=== PATIENT | female | born 1990 | race Caucasian/White ===

== ENCOUNTER → 2016-11-05 | Outpatient (REF) | payer OTHER ==
[~2016-11-05] MED LIST: ACET50TA PO; CYCL10TA PO; FERR325T3 PO; IBUP-1114 PO; IBUP80TA PO; LABE10TAB PO; NORE0.353 PO; PERC5TAB6 PO; PRENTAB9 PO; TUMS500C PO; VITAPRTA PO; ZANTTAB PO; ZYRT10CA PO; [UNRECOGNIZED DRUG - OTHER] PO
[2016-11-05 14:11] LABS: FOLATE 16.5 NG/ML; VITAMIN B12 LEVEL 325 PG/ML
[2016-11-05 14:20] LABS: FREE T4 0.99 NG/DL (0.76-1.46); TOTAL PROTEIN 7.7 GM/DL (6.4-8.2)
[2016-11-07 10:45] LABS: ALBUMIN 4.25 GM/DL (3.29-5.55); ALBUMIN % 55.2 % (55.8-66.1); GAMMA GLOBULIN % 20.9 % (11.1-18.8)
[2016-11-08 14:26] LABS: VITAMIN E LEVEL 10.6 mg/L (5.3-16.8)
== END | disposition home or self-care (01) ==
LOC: M LABNEURO 12:48
PROVIDERS: ATTEND Psychiatry & Neurology Neurology
DX: G62.9 Polyneuropathy, unspecified (principal); G43.909 Migraine, unspecified, not intractable, without status migrainosus

== ENCOUNTER → 2017-03-05 | Outpatient (REF) | payer OTHER ==
[2017-03-05 13:44] LABS: CONTROL LINE HCG INT CTR LINE PRESENT
[2017-03-05 13:48] LABS: BASO % 0.3 % (0.0-1.0); EOS # 0.2 K/mm3 (0.0-0.50); EOS % 2.1 % (0.0-3.0); LARGE UNSTAINED CELL # 0.1 K/mm3 (0.0-0.4); LARGE UNSTAINED CELL % 1.6 % (0.0-4.0); LYMPH # 1.7 K/mm3 (1.5-6.5); LYMPH % 22.3 % (24.0-44.0); MEAN CORPUSCULAR HEMOGLOBIN 27.1 pg (27.0-33.0); MEAN CORPUSCULAR HGB CONC 32.1 g/dl (32.0-36.5); MEAN CORPUSCULAR VOLUME 84.5 fl (80.0-96.0); MONO # 0.4 K/mm3 (0.0-0.8); MONO % 5.9 % (0.0-5.0); NEUTROPHILS # 4.8 K/mm3 (1.8-7.7); NEUTROPHILS % 67.8 % (36.0-66.0); PLATELET COUNT, AUTOMATED 223 k/mm3 (150-450); RED CELL DISTRIBUTION WIDTH 12.9 % (11.5-14.5); WHITE BLOOD COUNT 7.1 K/mm3 (4.0-10.0)
[2017-03-05 13:59] LABS: ALBUMIN 3.6 GM/DL (3.2-5.2); ALBUMIN/GLOBULIN RATIO 1.06 (1.00-1.93); ALKALINE PHOSPHATASE 80 U/L (45-117); ALT/SGPT 30 U/L (12-78); AMYLASE 25 U/L (25-115); ANION GAP 7 MEQ/L (8-16); AST/SGOT 12 U/L (15-37); BILIRUBIN,TOTAL 0.4 MG/DL (0.2-1.0); BLOOD UREA NITROGEN 11 MG/DL (7-18); CALCIUM LEVEL 9.2 MG/DL (8.5-10.1); CARBON DIOXIDE LEVEL 27 MEQ/L (21-32); CHLORIDE LEVEL 106 MEQ/L (98-107); CREATININE FOR GFR 0.78 MG/DL (0.55-1.02); GLOMERULAR FILTRATION RATE > 60.0 (>60); GLUCOSE, FASTING 87 MG/DL (70-105); POTASSIUM SERUM 4.2 MEQ/L (3.5-5.1); SODIUM LEVEL 140 MEQ/L (136-145)
== END ==
LOC: M SFHCPLAZ 10:18
PROVIDERS: ATTEND Nurse Practitioner Family
DX: R10.13 Epigastric pain (principal)

== ENCOUNTER → 2017-03-26 | Outpatient (REF) | payer OTHER | LOC: M LAB REF 13:07 | PROVIDERS: ATTEND Specialist | DX: Z12.4 Encounter for screening for malignant neoplasm of cervix (principal) ==

== ENCOUNTER → 2017-05-02 | Outpatient (CLI) | payer OTHER ==
[~2017-05-02] MED LIST changes: +PERC5TAB12 PO; -PERC5TAB6 PO
[2017-05-06 00:06] LABS: Lyme Disease IgG Ab 18 kDa Ban Absent (.); Lyme Disease IgG Ab 23 kDa Ban Absent (.); Lyme Disease IgG Ab 28 kDa Ban Absent (.); Lyme Disease IgG Ab 30 kDa Ban Absent (.); Lyme Disease IgG Ab 39 kDa Ban Absent (.); Lyme Disease IgG Ab 41 kDa Ban Present (.); Lyme Disease IgG Ab 45 kDa Ban Absent (.); Lyme Disease IgG Ab 58 kDa Ban Absent (.); Lyme Disease IgG Ab 66 kDa Ban Absent (.); Lyme Disease IgG Ab 93 kDa Ban Absent (.); Lyme Disease IgG West Blot Int Negative (.); Lyme Disease IgG/IgM Antibodie 0.94 ISR (0.00-0.90); Lyme Disease IgM Ab 23 kDa Ban Present (.); Lyme Disease IgM Ab 39 kDa Ban Absent (.); Lyme Disease IgM Ab 41 kDa Ban Present (.); Lyme Disease IgM Ab Quantitati 1.55 index (0.00-0.79); Lyme Disease IgM West Blot Int Positive (.)
== END ==
LOC: M LAB 10:07
PROVIDERS: ATTEND Nurse Practitioner Family
DX: M25.50 Pain in unspecified joint (principal)

== ENCOUNTER 2017-11-07 15:12 | Emergency (ER) | payer OTHER | END 2017-11-07 16:52 | disposition home or self-care (01) | LOC: M ED 15:12 | DX: M54.5 Low back pain (principal); G89.29 Other chronic pain; J45.909 Unspecified asthma, uncomplicated; F17.210 Nicotine dependence, cigarettes, uncomplicated; Z79.899 Other long term (current) drug therapy; Z91.048 Other nonmedicinal substance allergy status; Z88.8 Allergy status to other drugs, medicaments and biological substances | CPT/HCPCS: 99283 ==

== ENCOUNTER 2017-11-11 15:32 | Emergency (ER) | payer OTHER ==
[2017-11-11] MEDS: diphenhydrAMINE INJ 50MG/ML VIAL (J1200) IV (18:09)
[2017-11-11] MEDS: METOCLOPRAMIDE INJ 10MG/2ML VIAL (J2765) IV (18:15)
[2017-11-11] MEDS: KETOROLAC 30 MG/ML VIAL (J1885) IV (18:15)
[2017-11-11] MEDS: NS 1,000 ML IV (18:15)
[2017-11-11 18:26] LABS: BASO % 0.4 % (0.0-1.0); EOS # 0.2 10^3/uL (0.0-0.50); EOS % 2.5 % (0.0-3.0); HEMATOCRIT 48.4 % (36.0-47.0); HEMOGLOBIN 15.7 g/dl (12.0-16.0); IMMATURE GRANULOCYTE % 0.2 % (0-0); LYMPH # 2.9 10^3/uL (1.5-6.5); LYMPH % 31.4 % (24.0-44.0); MEAN CORPUSCULAR HEMOGLOBIN 27.5 pg (27.0-33.0); MEAN CORPUSCULAR HGB CONC 32.4 g/dl (32.0-36.5); MEAN CORPUSCULAR VOLUME 84.9 fl (80.0-96.0); MONO # 0.8 10^3/uL (0.0-0.8); MONO % 8.3 % (0.0-5.0); NEUTROPHILS # 5.2 10^3/uL (1.8-7.7); NEUTROPHILS % 57.2 % (36.0-66.0); PLATELET COUNT, AUTOMATED 322 10^3/uL (150-450); RED CELL DISTRIBUTION WIDTH 13.2 % (11.5-14.5); WHITE BLOOD COUNT 9.2 10^3/uL (4.0-10.0)
[2017-11-11 19:12] LABS: ANION GAP 5 MEQ/L (8-16); BLOOD UREA NITROGEN 14 MG/DL (7-18); CALCIUM LEVEL 9.5 MG/DL (8.5-10.1); CARBON DIOXIDE LEVEL 30 MEQ/L (21-32); CHLORIDE LEVEL 105 MEQ/L (98-107); CPK CREATINE PHOSPHOKINASE 50 U/L (26-192); CREATININE FOR GFR 1.01 MG/DL (0.55-1.02); GLOMERULAR FILTRATION RATE > 60.0 (>60); GLUCOSE, FASTING 73 MG/DL (70-105); POTASSIUM SERUM 3.7 MEQ/L (3.5-5.1); SODIUM LEVEL 140 MEQ/L (136-145)
== END 2017-11-11 19:34 | disposition home or self-care (01) ==
LOC: M ED 15:32
DX: G43.009 Migraine without aura, not intractable, without status migrainosus (principal); I10 Essential (primary) hypertension; F41.9 Anxiety disorder, unspecified; F33.9 Major depressive disorder, recurrent, unspecified; F90.9 Attention-deficit hyperactivity disorder, unspecified type; F17.210 Nicotine dependence, cigarettes, uncomplicated; Z79.899 Other long term (current) drug therapy; Z91.048 Other nonmedicinal substance allergy status; Z88.8 Allergy status to other drugs, medicaments and biological substances
CPT/HCPCS: J1200

== ENCOUNTER → 2017-12-12 | Outpatient (REF) | payer OTHER ==
[2017-12-12 12:47] LABS: FREE T4 1.17 NG/DL (0.76-1.46)
== END ==
LOC: M SFHCPLAZ 08:43
DX: L65.9 Nonscarring hair loss, unspecified (principal)

== ENCOUNTER → 2018-02-25 | Outpatient (REF) | payer OTHER ==
[2018-02-25 17:59] LABS: BASO % 0.3 % (0.0-1.0); EOS # 0.1 10^3/uL (0.0-0.50); EOS % 1.1 % (0.0-3.0); HEMATOCRIT 43.5 % (36.0-47.0); HEMOGLOBIN 14.3 g/dl (12.0-15.5); IMMATURE GRANULOCYTE % 0.1 % (0-3.0); LYMPH % 26.2 % (24.0-44.0); MEAN CORPUSCULAR HEMOGLOBIN 28.4 pg (27.0-33.0); MEAN CORPUSCULAR HGB CONC 32.9 g/dl (32.0-36.5); MEAN CORPUSCULAR VOLUME 86.5 fl (80.0-96.0); MONO # 0.5 10^3/uL (0.0-0.8); MONO % 7.1 % (0.0-5.0); NEUTROPHILS % 65.2 % (36.0-66.0); PLATELET COUNT, AUTOMATED 289 10^3/uL (150-450); RED BLOOD COUNT 5.03 10^6/uL (4.00-5.40); RED CELL DISTRIBUTION WIDTH 12.4 % (11.5-14.5); WHITE BLOOD COUNT 7.6 10^3/uL (4.0-10.0)
[2018-02-25 18:17] LABS: ALBUMIN 4.2 GM/DL (3.2-5.2); ALBUMIN/GLOBULIN RATIO 1.17 (1.00-1.93); ALKALINE PHOSPHATASE 78 U/L (45-117); ALT/SGPT 34 U/L (12-78); AMYLASE 24 U/L (25-115); ANION GAP 5 MEQ/L (8-16); AST/SGOT 15 U/L (7-37); BILIRUBIN,TOTAL 0.4 MG/DL (0.2-1.0); BLOOD UREA NITROGEN 11 MG/DL (7-18); CALCIUM LEVEL 9.1 MG/DL (8.5-10.1); CARBON DIOXIDE LEVEL 27 MEQ/L (21-32); CHLORIDE LEVEL 107 MEQ/L (98-107); GLOMERULAR FILTRATION RATE > 60.0 (>60); GLUCOSE, FASTING 64 MG/DL (70-100); LIPASE 74 U/L (73-393); POTASSIUM SERUM 4.2 MEQ/L (3.5-5.1); SODIUM LEVEL 139 MEQ/L (136-145); TOTAL PROTEIN 7.8 GM/DL (6.4-8.2)
[2018-02-25 19:53] LABS: APPEARANCE, URINE CLEAR (CLEAR); BACTERIA, URINE AUTO 1+ (NEGATIVE); BILIRUBIN, URINE AUTO NEGATIVE (NEGATIVE); BLOOD, URINE BLOOD NEGATIVE (NEGATIVE); COLOR, URINE YELLOW (YELLOW); GLUCOSE, URINE (UA) AUTO NEGATIVE (NEGATIVE); KETONE, URINE AUTO NEGATIVE (NEGATIVE); LEUKOCYTE ESTERASE, URINE AUTO 2+ (NEGATIVE); MUCUS, URINE SMALL (NEGATIVE); NITRITE, URINE AUTO NEGATIVE (NEGATIVE); PROTEIN, URINE AUTO NEGATIVE (NEGATIVE); RBC, URINE AUTO 3 /HPF (0-3); SPECIFIC GRAVITY URINE AUTO 1.021 (1.002-1.035); SQUAMOUS EPITHELIAL CELL UR AU 6 /HPF (0-6); UROBILINOGEN, URINE AUTO 0.2 mg/dL (0.0-2.0); WBC, URINE AUTO 22 /HPF (0-3)
[2018-02-25 20:26] LABS: MALB URINE SIEMENS 18.7 MG/L; MAU/CREAT RATIO 7.7 MCG/MG (0.0-30.0)
== END ==
LOC: M SFHCPLAZ 15:37
DX: R10.13 Epigastric pain (principal); I10 Essential (primary) hypertension; R39.11 Hesitancy of micturition

== ENCOUNTER → 2018-03-04 | Outpatient (CLI) | payer OTHER | LOC: M RAD 07:05 | DX: R10.13 Epigastric pain (principal) | CPT/HCPCS: 76705 ==

== ENCOUNTER → 2019-01-27 | Outpatient (REF) | payer OTHER ==
[~2019-01-27] MED LIST changes: -ACET50TA PO; +ADDE10CA3 PO; +IBUP-1022 PO; +MAPA500T2 PO; +SUMA6INJ16; +TRIA37.5; +VERA180C3 PO
[2019-01-27 12:49] LABS: BLOOD UREA NITROGEN 9 MG/DL (7-18); CALCIUM LEVEL 9.4 MG/DL (8.5-10.1); CARBON DIOXIDE LEVEL 28 MEQ/L (21-32); CHLORIDE LEVEL 106 MEQ/L (98-107); FERRITIN 22 NG/ML (8-252); GLOMERULAR FILTRATION RATE > 60.0 (>60); GLUCOSE, FASTING 101 MG/DL (70-100); IRON (FE) 65 UG/DL (50-170); POTASSIUM SERUM 4.2 MEQ/L (3.5-5.1); SODIUM LEVEL 140 MEQ/L (136-145)
== END ==
LOC: M SFHCPLAZ 09:17
PROVIDERS: ATTEND Nurse Practitioner Family
DX: L65.9 Nonscarring hair loss, unspecified (principal); I10 Essential (primary) hypertension

== ENCOUNTER 2019-02-16 13:46 | Emergency (ER) | payer OTHER ==
[~2019-02-16] VITALS: Ht 162.6 cm; Wt 65.9 kg
[2019-02-16] MEDS ORDERED: AZIT500T2 (13:53)
[2019-02-16] MEDS ORDERED: AMPICILLIN SOD/SULBACTAM SOD 3 GM in D5W MINI-BAG PLUS 100 ML IV ONE (14:45)
[2019-02-16] MEDS ORDERED: KETOROLAC 30 MG/ML VIAL (J1885) IV ONE (14:45)
[2019-02-16] MEDS ORDERED: NS 1,000 ML IV ONE (14:45)
[2019-02-16] MEDS ORDERED: IBUP-1022 PO (14:59)
[2019-02-16] MEDS ORDERED: AUGM875T28 PO (14:59)
[2019-02-16 15:04] LABS: BASO % 0.4 % (0.0-1.0); EOS # 0.3 10^3/uL (0.0-0.50); EOS % 2.3 % (0.0-3.0); HEMATOCRIT 40.8 % (36.0-47.0); HEMOGLOBIN 13.5 g/dl (12.0-15.5); LYMPH # 1.4 10^3/uL (1.5-6.5); LYMPH % 12.3 % (24.0-44.0); MEAN CORPUSCULAR HEMOGLOBIN 29.3 pg (27.0-33.0); MEAN CORPUSCULAR HGB CONC 33.1 g/dl (32.0-36.5); MEAN CORPUSCULAR VOLUME 88.5 fl (80.0-96.0); MONO # 0.8 10^3/uL (0.0-0.8); MONO % 6.9 % (0.0-5.0); NEUTROPHILS # 8.7 10^3/uL (1.8-7.7); NEUTROPHILS % 77.7 % (36.0-66.0); PLATELET COUNT, AUTOMATED 244 10^3/uL (150-450); RED BLOOD COUNT 4.61 10^6/uL (4.00-5.40); WHITE BLOOD COUNT 11.2 10^3/uL (4.0-10.0)
[2019-02-16 15:35] LABS: BLOOD UREA NITROGEN 11 MG/DL (7-18); CREATININE FOR GFR 0.78 MG/DL (0.55-1.30); GLOMERULAR FILTRATION RATE > 60.0 (>60); GLUCOSE, FASTING 78 MG/DL (70-100)
[2019-02-16 15:36] LABS: CARBON DIOXIDE LEVEL 26 MEQ/L (21-32); CHLORIDE LEVEL 106 MEQ/L (98-107); POTASSIUM SERUM 3.4 MEQ/L (3.5-5.1); SODIUM LEVEL 139 MEQ/L (136-145)
[2019-02-16 17:01] VITALS: BP 150/108
== END 2019-02-16 17:06 | disposition home or self-care (01) ==
LOC: M ED 13:46
DX: J02.0 Streptococcal pharyngitis (principal); I10 Essential (primary) hypertension; J45.909 Unspecified asthma, uncomplicated; E78.5 Hyperlipidemia, unspecified; F33.9 Major depressive disorder, recurrent, unspecified; F41.9 Anxiety disorder, unspecified; F90.9 Attention-deficit hyperactivity disorder, unspecified type; Z79.899 Other long term (current) drug therapy; Z88.0 Allergy status to penicillin; Z88.8 Allergy status to other drugs, medicaments and biological substances; Z91.048 Other nonmedicinal substance allergy status; F17.210 Nicotine dependence, cigarettes, uncomplicated
CPT/HCPCS: 36415; 80048; 85025; 96361; 96365; 96375; 99284; J1885

== ENCOUNTER → 2019-03-10 | Outpatient (REF) | payer OTHER ==
[~2019-03-10] MED LIST changes: +AUGM875T28 PO; +AZIT500T2; +PERCOCET PO
[2019-03-10 16:59] LABS: HEMATOCRIT 43.3 % (36.0-47.0); HEMOGLOBIN 13.9 g/dl (12.0-15.5); MEAN CORPUSCULAR HGB CONC 32.1 g/dl (32.0-36.5); MEAN CORPUSCULAR VOLUME 90.4 fl (80.0-96.0); PLATELET COUNT, AUTOMATED 250 10^3/uL (150-450); RED BLOOD COUNT 4.79 10^6/uL (4.00-5.40); WHITE BLOOD COUNT 8.5 10^3/uL (4.0-10.0)
[2019-03-10 17:03] LABS: HCG, SERUM QUALITATIVE NEGATIVE (NEGATIVE)
== END ==
LOC: M SFHCPLAZ 14:56
PROVIDERS: ATTEND Family Medicine
DX: Z01.818 Encounter for other preprocedural examination (principal)

== ENCOUNTER 2019-03-18 08:06 | Day surgery (SDC) | payer OTHER ==
[2019-03-18] VITALS (8 sets, daily range): BP systolic 127–136; BP diastolic 87–99
[~2019-03-18] VITALS: Ht 162.6 cm; Wt 65.9 kg
[~2019-03-18 08:06] MED LIST changes: -PERCOCET PO
[2019-03-18] MEDS ORDERED: PROPOFOL 200 MG/20 ML VIAL As Ordered ONE ×2 (08:23→13:06)
[2019-03-18] MEDS ORDERED: LIDOCAINE 2% INJ 100 MG/5 ML SDV (FOR ANES.) As Ordered ONE (08:25)
[2019-03-18] MEDS ORDERED: dexameTHASONE 4 MG/ML 1ML VIAL (J1100) As Ordered ONE (08:26)
[2019-03-18] MEDS ORDERED: fentaNYL 250 MCG/5 ML INJECTION (J3010) As Ordered ONE (08:29)
[2019-03-18] MEDS ORDERED: MIDAZOLAM INJ 2 MG/2 ML VIAL (J2250) As Ordered ONE (08:29)
[2019-03-18] MEDS ORDERED: ceFAZolin 1GM INJ (J0690 PER 500MG) As Ordered ONE (08:46)
[2019-03-18] MEDS ORDERED: CLINDAMYCIN 600 MG/50 ML PREMIX BAG As Ordered ONE (08:49)
[2019-03-18 09:37] LABS: URINE PREG TEST NEGATIVE (NEGATIVE)
[2019-03-18] MEDS ORDERED: BACITRACIN PWD 50,000 UNITS VIAL As Ordered ONE (09:55)
[2019-03-18] MEDS ORDERED: CLINDAMYCIN 600 MG in APPROPRIATE DILUENT 1 EA IV ONE (10:30)
[2019-03-18] MEDS ORDERED: SCOPOLAMINE 1MG TRANSDERMAL PATCH As Ordered ONE ×2 (10:34→10:37)
[2019-03-18] MEDS ORDERED: PHENYLephrine HCL 500 MCG/5 ML (100MCG/ML) SYRINGE (J2370) As Ordered ONE (10:57)
[2019-03-18] MEDS ORDERED: ePHEDrine SULFATE 25 MG/5 ML(5MG/ML) SYRINGE As Ordered ONE (11:32)
[2019-03-18] MEDS ORDERED: PHENYLEPHRINE INJ 10MG/ML VIAL (J2370) As Ordered ONE (11:35)
[2019-03-18] MEDS ORDERED: diphenhydrAMINE INJ 50MG/ML VIAL (J1200) As Ordered ONE (11:45)
[2019-03-18] MEDS ORDERED: KETAMINE HCL 200 MG/20 ML VIAL As Ordered ONE (11:54)
[2019-03-18] MEDS ORDERED: SUGAMMADEX SODIUM 500 MG/5 ML VIAL (BRIDION) As Ordered ONE (12:55)
--- NOTE | 2019-03-18 14:14 | POST-OPPD ---
Postoperative Procedure Note Date Of Procedure: March 18, 2019 PREOPERATIVE DIAGNOSIS: Bilateral symptomatic macromastia POSTOPERATIVE DIAGNOSIS: same FINDINGS: Large breasts PROCEDURE: Bilateral breast reduction SURGEON: Dr Galarza ANESTHESIA: General SPECIMENS: Right breast ( 368gm) , Left breast 396 gm) ESTIMATED BLOOD LOSS: 100cc REPLACED: none DRAINS: 10 mm LANCE drains x 2 COMPLICATIONS: none POSTOPERATIVE CONDITION: stable Dict: [id number] LM GALARZA DO March 18, 2019 14:14
[2019-03-18] MEDS ORDERED: oxyCODONE 5MG TAB As Ordered ONE (14:38)
[2019-03-18] MEDS: oxyCODONE 5MG TAB PO PRN ×2 (14:40→15:15)
[2019-03-18] MEDS ORDERED: PROMETHAZINE INJ 25 MG/ML VIAL (J2550) IV PRN (14:45)
[2019-03-18] MEDS ORDERED: METOCLOPRAMIDE INJ 10MG/2ML VIAL (J2765) IV PRN (14:45)
[2019-03-18] MEDS ORDERED: fentaNYL 100 MCG/2 ML INJECTION (J3010) IV PRN (14:45)
[2019-03-18] MEDS ORDERED: LR 1,000 ML IV SCH (14:45)
[2019-03-18] MEDS ORDERED: MORPHINE 4 MG/ML 1ML VIAL/SYRINGE (J2270) IV PRN (15:15)
[2019-03-18] MEDS: LR 1,000 ML IV SCH (17:01)
[2019-03-18] MEDS: PERCOCET 5MG/325MG TAB PO PRN ×2 (17:52→23:31)
[2019-03-18] MEDS: CLINDAMYCIN 600 MG in APPROPRIATE DILUENT 1 EA IV SCH (18:01)
[2019-03-18] MEDS ORDERED: LABETALOL 200 MG TAB PO SCH (21:00)
[2019-03-19 02:00] VITALS: BP 112/68
[2019-03-19] MEDS: CLINDAMYCIN 600 MG in APPROPRIATE DILUENT 1 EA IV SCH (03:57)
[2019-03-19] MEDS: LR 1,000 ML IV SCH (03:57)
[2019-03-19 06:00] VITALS: BP 115/80
--- NOTE | 2019-03-19 07:44 | IPNPDOC ---
Subjective General Date/Time Seen The patient was seen on 03/19/19 at 07:42. Subject Chief Complaint/History The patient is a 28-year-old female admitted with a reason for visit of Bilateral Breast Hypertrophy. POD 1. Doing well. Pain controlled. Current Medications Current Medications Current Medications Clindamycin Phosphate 600 mg/ IV Miscellaneous Supplies 50 ml @ 100 mls/hr Q8H IV Last administered on 03/19/19at 03:57; Start 03/18/19 at 19:00; Stop 03/19/19 at 03:29; Status DC Fentanyl Citrate (Sublimaze) 25 mcg Q5MP PRN IV MODERATE PAIN (PS 4-7); Start 03/18/19 at 14:45; Stop 03/18/19 at 15:45; Status DC Labetalol HCl (Normodyne, Trandate) 200 mg BID PO Last administered on 03/18/19at 21:15; Start 03/18/19 at 21:00 Lactated Ringer's 1,000 ml @ 75 mls/hr [id number] IV Last administered on 03/19/19at 03:57; Start 03/18/19 at 15:00 Lactated Ringer's 1,000 ml @ 100 mls/hr Q10H IV ; Start 03/18/19 at 14:45; Stop 03/18/19 at 15:45; Status DC Metoclopramide HCl (REGLAN INJection) 10 mg Q6HP PRN IV NAUSEA OR VOMITING; Start 03/18/19 at 14:45; Stop 03/18/19 at 15:45; Status DC Morphine Sulfate (Morphine Sulfate Inj) 4 mg Q4H PRN IV PAIN SCALE 7-10; Start 03/18/19 at 15:15 Oxycodone HCl (Roxicodone, Oxyir) 5 mg ASDIRECTED PRN PO MILD/MODERATE PAIN (PS 1-7) Last administered on 03/18/19at 15:15; Start 03/18/19 at 14:45; Stop 03/18/19 at 15:24; Status DC Oxycodone/ Acetaminophen (Percocet 5mg/ 325mg Tablet) 1 tab Q4H PRN PO PAIN SCALE 4-6 Last administered on 03/18/19at 23:31; Start 03/18/19 at 15:15 Promethazine HCl (PHENERGAN INJection) 12.5 mg Q5MP PRN IV NAUSEA OR VOMITING; Start 03/18/19 at 14:45; Stop 03/18/19 at 15:45; Status DC Allergies Coded Allergies: Serotonin 5HT-3 Antagonists (Verified Allergy, Intermediate, aggitated, 03/09/19) nickel (Verified Allergy, Mild, RASH, 02/16/19) amoxicillin (Verified Adverse Reaction, Intermediate, yeast inf, 02/16/19) Objective Physical Examination Examination GENERAL APPEARANCE:Patient seen, laying in bed, awake, alert, and oriented. Comfortable, in no acute distress. SKIN: Warm and moist. Breasts: incisions intact, NAC warm, pink, viable. LANCE serosanguinous HEENT: Normocephalic, atraumatic. [place] palpebral conjunctiva, anicteric sclerae. Lips and mucosa appear moist. NECK: Supple, no thyromegaly. No obvious jugular venous distention. LUNGS: Clear to auscultation bilaterally. No wheezing appreciated. HEART: No chest wall abnormalities. Regular rate and rhythm with no murmurs appreciated. Vital Signs Vital Signs Date Time Temp Pulse Resp B/P (MAP) Pulse Ox O2 Delivery O2 Flow Rate FiO2 03/19/19 06:00 98.2 97 17 115/80 (92) 98 03/18/19 14:20 2 I&Os I&O- Last 24 Hours up to 6 AM 03/19/19 06:00 Intake Total 4355 ml Output Total 60 ml Balance 4295 ml Laboratory Data Labs 24H Laboratory Tests 2 03/18/19 09:27: Urine Test NEGATIVE A-FIB/CHADSVASC A-FIB History Current/History of A-Fib/PAF?: No Current PO Anticoag Therapy: No Impression S/p BBR POD 1 Doing well. pain controlled Stable for discharge Instructions given to patient F/up plastic surgery Plan / VTE VTE Prophylaxis Ordered?: Yes LM GALARZA DO March 19, 2019 07:44
[2019-03-19] MEDS ORDERED: PERCOCET PO (07:48)
--- NOTE | 2019-03-19 08:22 | RO ---
DATE OF PROCEDURE: 03/18/2019 PREOPERATIVE DIAGNOSIS: Bilateral symptomatic macromastia. POSTOPERATIVE DIAGNOSIS: Bilateral symptomatic macromastia. PROCEDURE: Bilateral breast reduction. ATTENDING SURGEON: Dr. Davila ANESTHESIA: General. SPECIMENS: Right breast 368 grams, left breast 396 grams. BLOOD LOSS: 100 mL, no replacement needed. DRAINS: 10 mm Milad-Farias drains times two. COMPLICATIONS: None. POSTOP CONDITION: Stable. PROCEDURE: This is a 28-year-old female who presented in our office complaining of upper back pain. The patient has large breasts, 34DDD, and she wished to have them reduced. All the risks and benefits and alternatives were discussed with the patient and she is ready to proceed with surgery. On the day of surgery she was marked in an upright position in the preoperative holding area. Her left nipple areolar complex from sternal notch 28, right 27 cm. The inframammary fold (IMF) level is at 19 cm, that is where the new nipple areolar complex is going to be marked at. She was brought to the operating room, placed in supine position. Preoperative antibiotics given. Sequential stockings placed on the lower calves. General anesthesia was induced. She was prepped and draped in the usual sterile fashion. I started the procedure on the right side, which was the smallest side. The nipple areolar complex was outlined at 42 mm in diameter. The incision was carried out along the markings. The pattern for the breast reduction is a superomedial pattern, so the inferolateral portion of the breast was removed using electrocautery. Hemostasis was obtained, then the pedicle was deepithelialized using Narvaez scissors and the wound was irrigated with bacitracin irrigation solution. The pedicle was then turned superiorly to its new position at 19 cm from the sternal notch and a new mound was recreated. The flaps were then closed with interrupted #3-0 Monocryl sutures. The vertical limb in 7 cm. Excess skin was measured and tailored off, and resected inferiorly and laterally creating a horizontal scar. A 10 mm Milad-Farias drain was placed through the lateral portion of the horizontal incision and was continued closing with interrupted #3-0 Monocryl sutures. The nipple areolar complex was set in place with interrupted #3-0 Monocryl sutures as well as running dermal stitch with #5-0 plain gut suture. Then we turned out attention to the left side, which was slightly larger and nesbitt. The nipple areolar complex was again measured at 42 mm in diameter and we started our incision along the superomedial pattern markings, resecting the inferolateral portion of the breast using electrocautery. Hemostasis was obtained using electrocautery as well, then the wound was irrigated with bacitracin irrigation solution. The pedicle was deepithelialized using Narvaez scissors and then we turned it superiorly to its new position at 19 cm from the sternal notch. The mound was recreated and the lateral pillars were closed with interrupted #3-0 Monocryl sutures. #0 Vicryl was used to conform the mound as well. The vertical limb was 7 cm. Excess tissue inferiorly was measured, tailored and resected creating the horizontal scar. The incision was then closed with interrupted #3-0 Monocryl sutures. A 10 mm Milad-Farias drain was placed through the lateral portion of the incision, then sutured in place and then the nipple areolar complex was secured and set in place with #3-0 Monocryl sutures, #4-0 Monocryl and running #5-0 plain gut suture. Steri-Strips were applied to the vertical and horizontal scars. Xeroform was placed on the nipple areolar complex and then the padding and surgical bra was placed. The patient was extubated in the operating room without any difficulties, transferred to the recovery room in stable condition. MITCH
[2019-03-19] MEDS: PERCOCET 5MG/325MG TAB PO PRN (08:38)
== END 2019-03-19 09:50 | disposition home or self-care (01) ==
LOC: M SDC 08:06 → M MS5PR 16:10 → M SDC 03-19 09:50
PROVIDERS: ATTEND Plastic Surgery Surgery of the Hand
DX: N62 Hypertrophy of breast (principal); M54.9 Dorsalgia, unspecified; I10 Essential (primary) hypertension; J45.909 Unspecified asthma, uncomplicated; Z79.899 Other long term (current) drug therapy; Z88.0 Allergy status to penicillin; Z88.8 Allergy status to other drugs, medicaments and biological substances; F41.9 Anxiety disorder, unspecified; F32.9 Major depressive disorder, single episode, unspecified
CPT/HCPCS: 19318; 84703; 88304; J1100; J1200; J2250; J2370; J3010

== ENCOUNTER → 2020-04-24 | Outpatient (REF) | payer OTHER ==
[~2020-04-24] MED LIST changes: -AZIT500T2; +AZIT500T5; +CYCL-707 PO; -CYCL10TA PO; +PERCOCET PO; +ZANT150T40 PO; -ZANTTAB PO
== END ==
LOC: M SFHCWAGY 17:58
PROVIDERS: ATTEND Specialist
DX: Z01.419 Encounter for gynecological examination (general) (routine) without abnormal findings (principal); Z12.4 Encounter for screening for malignant neoplasm of cervix

== ENCOUNTER → 2020-12-11 | Outpatient (REF) | payer OTHER ==
[~2020-12-11] MED LIST changes: +LABE100T4 PO; -LABE10TAB PO
== END ==
LOC: M PLALAB 11:44
PROVIDERS: ATTEND Obstetrics & Gynecology
DX: Z3A.08 8 weeks gestation of pregnancy (principal)

== ENCOUNTER → 2021-01-10 | Outpatient (REF) | payer OTHER ==
[~2021-01-10] MED LIST changes: +LABE200T32 PO; +REGL10TA6 PO
[2021-01-10 11:40] LABS: HEMOGLOBIN 14.6 g/dl (12.0-15.5); MEAN CORPUSCULAR HEMOGLOBIN 29.5 pg (27.0-33.0); MEAN CORPUSCULAR HGB CONC 33.2 g/dl (32.0-36.5); MEAN CORPUSCULAR VOLUME 88.9 fl (80.0-96.0); PLATELET COUNT, AUTOMATED 237 10^3/uL (150-450); RED BLOOD COUNT 4.95 10^6/uL (4.00-5.40); WHITE BLOOD COUNT 12.2 10^3/uL (4.0-10.0)
[2021-01-10 12:02] LABS: TOTAL PROTEIN,RANDOM URINE 20.6 MG/DL (0.0-12.0)
[2021-01-10 12:51] LABS: HEPATITIS C VIRUS ABY INDEX < 0.0 INDEX (<0.8); HIV 1&2 SCREEN CENTAUR NEGATIVE (NEGATIVE)
== END ==
LOC: M PLALAB 09:37
PROVIDERS: ATTEND Obstetrics & Gynecology
DX: Z34.82 Encounter for supervision of other normal pregnancy, second trimester (principal); Z3A.08 8 weeks gestation of pregnancy

== ENCOUNTER 2021-01-12 11:56 | Emergency (ER) | payer OTHER ==
[~2021-01-12] VITALS: Ht 162.6 cm; Wt 75.5 kg
[~2021-01-12 11:56] MED LIST changes: -LABE200T32 PO; -REGL10TA6 PO
[2021-01-12] MEDS ORDERED: LABE200T32 PO (12:11)
[2021-01-12 12:46] LABS: BASO % 0.2 % (0.0-1.0); EOS # 0.1 10^3/uL (0.0-0.5); EOS % 0.6 % (0.0-3.0); HEMATOCRIT 40.9 % (36.0-47.0); HEMOGLOBIN 13.6 g/dl (12.0-15.5); LYMPH # 1.1 10^3/uL (1.5-5.0); LYMPH % 9.7 % (24.0-44.0); MEAN CORPUSCULAR HEMOGLOBIN 29.5 pg (27.0-33.0); MEAN CORPUSCULAR HGB CONC 33.3 g/dl (32.0-36.5); MEAN CORPUSCULAR VOLUME 88.7 fl (80.0-96.0); MONO # 0.7 10^3/uL (0.0-0.8); MONO % 6.4 % (2.0-8.0); NEUTROPHILS # 9.5 10^3/uL (1.5-8.5); NEUTROPHILS % 82.6 % (36.0-66.0); PLATELET COUNT, AUTOMATED 224 10^3/uL (150-450); RED BLOOD COUNT 4.61 10^6/uL (4.00-5.40); WHITE BLOOD COUNT 11.5 10^3/uL (4.0-10.0)
[2021-01-12] MEDS ORDERED: ONDANSETRON 4MG/2ML VIAL As Ordered ONE (12:51)
[2021-01-12] MEDS ORDERED: ONDANSETRON 4MG/2ML VIAL IV ONE (13:05)
[2021-01-12 13:08] LABS: ALBUMIN 3.3 GM/DL (3.2-5.2); ALT/SGPT 24 U/L (12-78); BILIRUBIN,DIRECT 0.1 MG/DL (0.0-0.2); BILIRUBIN,TOTAL 0.2 MG/DL (0.2-1.0); BLOOD UREA NITROGEN 9 MG/DL (7-18); CARBON DIOXIDE LEVEL 24 MEQ/L (21-32); CHLORIDE LEVEL 108 MEQ/L (98-107); CREATININE FOR GFR 0.59 MG/DL (0.55-1.30); GLOMERULAR FILTRATION RATE > 60.0 (>60); GLUCOSE, FASTING 88 MG/DL (70-100); MAGNESIUM LEVEL 2.5 MG/DL (1.8-2.4); POTASSIUM SERUM 3.8 MEQ/L (3.5-5.1); SODIUM LEVEL 139 MEQ/L (136-145); TOTAL PROTEIN 7.1 GM/DL (6.4-8.2)
[2021-01-12] MEDS ORDERED: ACETAMINOPHEN 500 MG TAB PO ONE (13:55)
[2021-01-12] MEDS ORDERED: NS 1,000 ML IV ONE (13:55)
[2021-01-12] MEDS ORDERED: METOCLOPRAMIDE INJ 10MG/2ML VIAL (J2765 PER 1) IV ONE (13:55)
[2021-01-12] MEDS ORDERED: MAG SULF 1GM/100ML (MAG RUN) 1 GM in IV 1 EA IV ONE (13:55)
[2021-01-12] MEDS ORDERED: PROMETHAZINE INJ 25 MG/ML VIAL (J2550) IV ONE (16:25)
[2021-01-12] MEDS ORDERED: KETOROLAC 30 MG/ML 1ML VIAL IV ONE (16:40)
[2021-01-12] MEDS ORDERED: REGL10TA6 PO (17:06)
[2021-01-12 17:30] VITALS: BP 155/99
--- NOTE | 2021-01-14 08:02 | ECGEPIP ---
[facility] - ED Test Date: 2021-01-12 Pat Name: VALDEMAR CATHERINE Department: Room: - Gender: Female [employer] Rater: ERICA : 1990 Requested By: MARIA M Pabon Order Number: [id number] Reading MD: Elena Condon Measurements Intervals [place] Rate: 82 P: -1 OR: 230 QRS: 4 QRSD: 82 T: 12 QT: 378 QTc: 441 Interpretive Statements Sinus rhythm with 1st degree AV block similar 09/28/16 Electronically Signed on 01-14-2021 8:01:43 EDT by Elena Condon
== END 2021-01-12 18:09 | disposition home or self-care (01) ==
LOC: M ED 11:56
DX: O99.352 Diseases of the nervous system complicating pregnancy, second trimester (principal); G43.909 Migraine, unspecified, not intractable, without status migrainosus; O99.412 Diseases of the circulatory system complicating pregnancy, second trimester; I10 Essential (primary) hypertension; I44.0 Atrioventricular block, first degree; Z79.899 Other long term (current) drug therapy; O99.332 Smoking (tobacco) complicating pregnancy, second trimester; F17.210 Nicotine dependence, cigarettes, uncomplicated; Z88.8 Allergy status to other drugs, medicaments and biological substances; Z88.0 Allergy status to penicillin; Z91.048 Other nonmedicinal substance allergy status
CPT/HCPCS: 36415; 80048; 80076; 83735; 85025; 93005; 93041; 94760; 96365; 96375; 99285; J1885; J2405; J2765; J3475

== ENCOUNTER → 2021-02-28 | Outpatient (CLI) | payer OTHER ==
[~2021-02-28] MED LIST changes: +LABE200T32 PO; +REGL10TA6 PO
--- NOTE | 2021-02-28 16:22 | REP ---
INDICATION: ANATOMY. ENMA July 17, 2021. COMPARISON: No comparison is period. TECHNIQUE: Transabdominal obstetric sonography. FINDINGS: Scanning through the gravid uterus demonstrates a viable single intrauterine gestation in cephalic lie. motion is observed and heart rate is recorded at 150 beats per minute. A posterior placenta is seen, grade 1, without evidence of placenta previa. Closed cervical length is measured at 4.8 cm transabdominally. No extrauterine abnormality is observed. Amniotic fluid is subjectively normal. No anomaly is seen. The following anatomic structures are identified and felt to be sonographically unremarkable: cranium, choroid plexus, cavum, cerebellum and posterior fossa, face and profile, lungs, four-chamber heart, diaphragm, left-sided stomach, abdominal wall cord insertion, three-vessel umbilical cord, kidneys and bladder, spine, and upper and lower extremities. Left and right ventricular cardiac outflow tract views are less than optimally seen due to position. Biometry chart: BPD 4.8 cm, 20 weeks 3 days Head circumference 18.6 cm, 21 weeks 0 days Abdominal circumference 15.3 cm, 20 weeks 4 days Femur length 3.4 cm, 20 weeks 5 days Humeral length 3.4 cm, 21 weeks 5 days HC AC ratio normal 1.22 Cephalic index 0.69 (0.70-0.86) Estimated weight 365 g, 0 lb 12, 71st percentile for 20 weeks 1 day IMPRESSION: Viable single intrauterine gestation at 20 weeks 6 days by today's composite sonographic criteria. ENMA by today's sonography 12 July 2021. No complication identified. <Electronically signed by Darren Hsieh > 02/28/21 [id number]
== END ==
LOC: M WHC 09:35
PROVIDERS: ATTEND Advanced Practice Midwife
DX: Z36.9 Encounter for antenatal screening, unspecified (principal); Z3A.20 20 weeks gestation of pregnancy

== ENCOUNTER → 2021-03-08 | Outpatient (REF) | payer OTHER ==
[2021-03-08 15:30] LABS: CHLAMYDIA DNA AMPLIFICATION NEGATIVE (NEGATIVE); GC DNA AMPLIFICATION NEGATIVE (NEGATIVE)
== END ==
LOC: M SFHCWAGY 13:13
PROVIDERS: ATTEND Advanced Practice Midwife
DX: O10.012 Pre-existing essential hypertension complicating pregnancy, second trimester (principal)

== ENCOUNTER → 2021-04-02 | Outpatient (CLI) | payer OTHER ==
--- NOTE | 2021-04-02 11:32 | REP ---
INDICATION: F/U ANATOMY COMPARISON: 02/28/2021 TECHNIQUE: Transabdominal obstetrical ultrasound with color Doppler evaluation. FINDINGS: Examination demonstrates a single live intrauterine in breech presentation. motion is identified by technologist. Placenta is noted posterior and grade 1 without evidence for placenta previa or abruption. Amniotic fluid volume is normal. Cervix measures 3.9 cm in length and appears closed.. Selected gestational age: 24 weeks 6 days with ENMA 07/17/2021. Gestational age by current measurements 25 weeks 2 days with ENMA 07/14/2021. FHR equals 155 beats per minute. Estimated weight 752 grams (44thpercentile). Anatomical assessment demonstrates normal structures including cranium, choroid plexus, cavum, cerebellum/posterior fossa, facial features, lungs, four-chamber heart/ventricular outflow tracts, diaphragm, stomach, cord insertion/three-vessel cord, kidneys/bladder, spine, and extremities. IMPRESSION: Single live intrauterine in breech presentation demonstrating appropriate estimated weight and growth. Anatomical assessment is complete and normal. No gross abnormalities are identified. <Electronically signed by Lucho Valles > 04/02/21 1124
== END ==
LOC: M WHC 09:24
PROVIDERS: ATTEND Advanced Practice Midwife
DX: Z36.89 Encounter for other specified antenatal screening (principal); Z3A.21 21 weeks gestation of pregnancy

== ENCOUNTER 2021-05-21 16:13 | Outpatient (CLI) | payer OTHER ==
[~2021-05-21] VITALS: Ht 160 cm; Wt 88.0 kg
[2021-05-21] MEDS ORDERED: EXCETAB44 PO (16:29)
[2021-05-21] MEDS ORDERED: EXCETAB33 PO (16:30)
[2021-05-21] MEDS ORDERED: ACET325C5 PO (16:30)
[2021-05-21 16:38] VITALS: BP 121/79
[2021-05-21] MEDS ORDERED: CALCIUM CARBONATE 500 MG CHEW U/D PO ONE (17:25)
[2021-05-21 17:36] VITALS: BP 132/89
[2021-05-21 17:53] LABS: APPEARANCE, URINE HAZY (CLEAR); BACTERIA, URINE AUTO NEGATIVE (NEGATIVE); BILIRUBIN, URINE AUTO NEGATIVE (NEGATIVE); BLOOD, URINE BLOOD NEGATIVE (NEGATIVE); COLOR, URINE YELLOW (YELLOW); GLUCOSE, URINE (UA) AUTO NEGATIVE (NEGATIVE); KETONE, URINE AUTO NEGATIVE (NEGATIVE); LEUKOCYTE ESTERASE, URINE AUTO 1+ (NEGATIVE); MUCUS, URINE SMALL (NEGATIVE); NITRITE, URINE AUTO NEGATIVE (NEGATIVE); PROTEIN, URINE AUTO NEGATIVE (NEGATIVE); RBC, URINE AUTO 1 /HPF (0-3); SPECIFIC GRAVITY URINE AUTO 1.016 (1.002-1.035); SQUAMOUS EPITHELIAL CELL UR AU 7 /HPF (0-6); UROBILINOGEN, URINE AUTO 0.2 mg/dL (0.0-2.0); WBC, URINE AUTO 2 /HPF (0-3)
[2021-05-21] MEDS ORDERED: PERCOCET 5MG/325MG TAB PO ONE (18:00)
--- NOTE | 2021-05-21 21:47 | IPNPDOC ---
Text Note Date of Service The patient was seen on 05/21/21. NOTE Subjective: Carolyn is a 30-year-old female who is a at 31.6 weeks gestation with an ENMA of 07/17/21 based off of LMP and consistent with her first trimester ultrasound. She initiated care in her first trimester of . Her has been complicated by CHTN (which she is taking Labetalol 200 mg BID and ASA 81 mg), she is a smoker, +GBS urine, Chlamydia diagnosed with first OB appointment; Hx of preeclampsia; ADHD (taking Adderall 5 mg BID) and she is a smoker. She presented to L&D with complaints of a headache and left sided upper back pain. She reports back pain started yesterday and is constant that wraps around from her stomach area and wraps around her upper back. She has taken Tylenol and Excedrin. She reports she hasn't eaten much today or drank much water. Reports active movement. Denies vaginal bleeding, leaking of fluid or contractions. After being in department she reports no pain and no headache after she took a nap and got Tums. OB Hx: -08/24/14: at 38 weeks gestation of a living male weighting 7 lbs -08/04/16: of a living male at 36 weeks. Induced for preeclampsia, weighting 5 lbs 11 oz -1 induced AB and 1 SAB Medical Hx: CHTN and migraines Surgical Hx: breast reduction/lift Family Hx: breast cancer, HTN, heart disease Social Hx: , current smoker, denies history of drug or alcohol abuse Objective: FHR: 125, moderate variability, positive accelerations, no decelerations. [place]: Contractions irregular-denies feeling anything General: Alert and oriented. Does not appear to be in any distress or discomfort. Respiratory: Regular rate and rhythm, no use of accessory muscles Abdomen: soft and non tender to touch Extremities: Generalized edema, no clonus Labs and VS see below (normotensive) Assessment: IUP at 31.6 weeks gestation, headache, left sided upper back pain Plan: -monitor fetus -UA and culture sent -offered Fiorocet and she refused it -Ordered Tums for heartburn -Patient reported she felt better and requested to be discharged to home. She has an appointment 05/23/21. Reviewed access to care, kick counts, labor signs, preeclamptic signs, and danger signs to report. Discharged to home with precautions. VS,Fishbone, I+O VS, Fishbone, I+O Vital Signs Date Time Temp Pulse Resp B/P (MAP) Pulse Ox O2 Delivery O2 Flow Rate FiO2 05/21/21 17:36 70 16 132/89 (103) 05/21/21 16:38 97.3 Item Value Date Time Urine Color YELLOW 05/21/21 1711 Urine Appearance HAZY 05/21/21 1711 Urine pH 7.0 UNITS 05/21/21 1711 Urine Specific [place] 1.016 05/21/21 1711 Urine Protein NEGATIVE mg/dL 05/21/21 1711 Urine Glucose (Auto)(UA) NEGATIVE mg/dL 05/21/21 1711 Urine Ketones (Auto) NEGATIVE mg/dL 05/21/21 1711 Urine Blood NEGATIVE 05/21/21 1711 Urine Nitrite NEGATIVE 05/21/21 1711 Urine Bilirubin NEGATIVE 05/21/21 1711 Urine Urobilinogen 0.2 mg/dL 05/21/21 1711 Urine Leukocyte Esterase (Auto) 1+ H 05/21/21 1711 Urine WBC (Auto) 2 /HPF 05/21/21 1711 Urine RBC (Auto) 1 /HPF 05/21/21 1711 Urine Hyaline Casts (Auto) 0 /LPF 05/21/21 1711 Urine Bacteria (Auto) NEGATIVE 05/21/211 Urine Mucus (Auto) SMALL 05/21/21 1711 Urine Squamous Epithelial Cells 7 /HPF 05/21/21 Keven RICK LLANOS CNM May 21, 2021 21:47
== END 2021-05-21 21:45 | disposition home or self-care (01) ==
LOC: M LDO 16:13
PROVIDERS: ATTEND Advanced Practice Midwife
DX: O26.893 Other specified pregnancy related conditions, third trimester (principal); R12 Heartburn; R51.9 Headache, unspecified; R10.2 Pelvic and perineal pain; O10.013 Pre-existing essential hypertension complicating pregnancy, third trimester; Z3A.31 31 weeks gestation of pregnancy; O99.820 Streptococcus B carrier state complicating pregnancy; O99.333 Smoking (tobacco) complicating pregnancy, third trimester; F17.210 Nicotine dependence, cigarettes, uncomplicated

== ENCOUNTER → 2021-05-31 | Outpatient (CLI) | payer OTHER ==
[~2021-05-31] MED LIST changes: +ACET325C5 PO; +EXCETAB33 PO; +EXCETAB44 PO
--- NOTE | 2021-05-31 12:34 | REP ---
INDICATION: GROWTH/TETO. COMPARISON: None. TECHNIQUE: Transabdominal scanning FINDINGS: Multiple ultrasonographic images of the gravid uterus shows a single living intrauterine gestation in the cephalic presentation. Doppler interrogation of the heart shows a heart rate of 134 beats per minute. The subjective amniotic fluid volume is within normal limits. The calculated amniotic fluid index is 20.0 within expected range 8.2 to 24.6 the placenta is posterior and not low-lying. The cervix measures 3.7 cm length and is closed. BPD: 8.6 cm 34 weeks 4 days HC: 30.9 cm 34 weeks 3 days AC: 30.3 cm 34 weeks 2 days FL: 6.7 cm 34 weeks 2 days The estimated weight is 2401 g which is at the 73rd percentile for a 33 week 2 day gestational age. IMPRESSION: Single living intrauterine gestation as described above with an estimated gestational age of 34 weeks 3 days via composite criteria and an estimated date of delivery of 07/09/2021 by today's exam. <Electronically signed by Naresh Juarez > 05/31/21 1327
== END ==
LOC: M WHC 09:31
PROVIDERS: ATTEND Advanced Practice Midwife
DX: O10.013 Pre-existing essential hypertension complicating pregnancy, third trimester (principal); Z3A.34 34 weeks gestation of pregnancy

== ENCOUNTER 2021-06-11 12:47 | Outpatient (CLI) | payer OTHER ==
[~2021-06-11] VITALS: Ht 160 cm; Wt 89.6 kg
[~2021-06-11 12:47] MED LIST changes: -ADDE1TAB14 PO; -MUCI600T31 PO
[2021-06-11] MEDS ORDERED: MUCI600T31 PO (13:09)
[2021-06-11 13:14] VITALS: BP 135/99
[2021-06-11 13:30] VITALS: BP 123/80
[2021-06-11 13:51] VITALS: BP 128/86
--- NOTE | 2021-06-11 16:55 | REP ---
INDICATION: BPP. TECHNIQUE: Transabdominal scanning FINDINGS: Multiple ultrasonographic images of the gravid uterus shows a single living intrauterine gestation in the cephalic presentation. Doppler interrogation of the heart shows a heart rate of 132 beats per minute. The placenta is left lateral and not low-lying. The cervix measures 4.1 cm in length and is closed. Doppler interrogation of the umbilical artery shows an A\B ratio of 2.55 and 2.06. Both are within the normal range. The subjective amniotic fluid volume is within normal limits. The calculated amniotic fluid index is 17.5 with an expected range 7.9 to 24.9. biophysical profile score is 2 for breathing, 2 for movement, 2 for tone, and 2 for amniotic fluid volume giving a sum total of 8/8. IMPRESSION: Limited OB ultrasound as described above. <Electronically signed by Naresh Juarez > 06/11/21 [id number]
[2021-06-12] MEDS ORDERED: ADDE1TAB14 PO (15:13)
== END 2021-06-11 17:15 | disposition home or self-care (01) ==
LOC: M LDO 12:47
PROVIDERS: ATTEND Advanced Practice Midwife
DX: O10.013 Pre-existing essential hypertension complicating pregnancy, third trimester (principal); O99.333 Smoking (tobacco) complicating pregnancy, third trimester; O09.293 Supervision of pregnancy with other poor reproductive or obstetric history, third trimester; F17.210 Nicotine dependence, cigarettes, uncomplicated; Z3A.34 34 weeks gestation of pregnancy; Z79.899 Other long term (current) drug therapy

== ENCOUNTER → 2021-06-11 | Outpatient (CLI) | payer OTHER ==
[~2021-06-11] MED LIST changes: +ADDE1TAB14 PO; +MUCI600T31 PO; +OMEP10CASR PO
--- NOTE | 2021-06-11 19:52 | IPN ---
PROGRESS NOTE DATE: 06/11/2021 SUBJECTIVE: Carolyn is a 30-year-old 5, para 1-1-2-2 at 34-6/7 weeks' gestation, EDC of 07/17/2021 based on last menstrual period confirmed with ultrasound. She presents to labor and delivery today following her routine appointment where she was noted to have a heart rate of category 2 in the office so she was sent to labor and delivery for prolonged monitoring. She denies vaginal bleeding, leakage of fluid, and painful contractions. The fetus has been active. course was initiated in the first trimester. course complicated by chronic hypertension. She has been taking labetalol 200 mg p.o. twice daily since early second trimester, aspirin 81 mg. She is a smoker, ADHD, Adderall 5 mg twice a day. She did have a positive chlamydia at her initial OB and a urine with GBS greater than 100,000. OBSTETRIC HISTORY: July 2014, 7 pound male, vaginal delivery, no complications. number two was spontaneous miscarriage. number three August 04, 2016, 5 pound 11 ounce male, vaginal delivery, 36 week induction for preeclampsia with severe features. number four elective termination of . OBSTETRIC LABS: Blood type is A positive, antibody screen is negative. GBS is positive in the urine. Her syphilis is nonreactive. Chlamydia was positive. Follow up was negative. Hepatitis B negative. Hepatitis C negative. HIV negative. Gonorrhea negative. Rubella immune. Gestational diabetic screening was 88. GBS positive. PAST MEDICAL HISTORY: 1. ADHD. 2. Migraines. 3. Chronic hypertension. PAST SURGICAL HISTOR: Breast reduction with lift. FAMILY HISTORY: Hypertension, heart disease, IgA deficiency, breast cancer. SOCIAL HISTORY: Father is at bedside and supportive. She is single. She is a smoker about half a pack per day. She denies alcohol and drug use. Positive chlamydia in this . Test of cure negative. She denies history of abuse, physical, sexual, and emotional. ALLERGIES: SSRIs which cause aggression. CURRENT MEDICATIONS: 1. Labetalol 200 mg p.o. twice daily. 2. Aspirin 81 mg once daily. 3. Adderall 5 mg twice a day. OBJECTIVE: Vital signs: Blood pressure is normotensive at 123/80, 128/86. General: She is alert and oriented times three. heart about 125 with moderate variability. There is an occasional variable deceleration. Abdomen is gravid. Sterile Vaginal Exam: Deferred. Biophysical profile returns score 8 out of 8. Her TETO is 17.5. ASSESSMENT: Intrauterine at 34-6/7 weeks. heart rate is category 2. BPP 8 out of 8. PLAN: Per consult with Dr. Jacey Weeks, february discharge the patient home. She is to have a BPP on and then continue with her weekly visits and NSTs on Mondays and the plan is for twice weekly testing at this point. I did review signs and symptoms of labor, movement counts, danger signs to report, access to her care provider. She and her partner's questions have all been answered and they do desire discharge home. MITCH
== END ==
LOC: M WHC 17:48
PROVIDERS: ATTEND Advanced Practice Midwife
DX: O10.013 Pre-existing essential hypertension complicating pregnancy, third trimester (principal)

== ENCOUNTER → 2021-06-14 | Outpatient (CLI) | payer OTHER ==
[~2021-06-14] MED LIST changes: +ADDE1TAB14 PO; +MUCI600T31 PO
--- NOTE | 2021-06-14 09:43 | REP ---
INDICATION: HYPERTENSION,BPP COMPARISON: 06/11/2021 TECHNIQUE: Transabdominal obstetrical ultrasound with color Doppler evaluation. FINDINGS: Examination demonstrates a single live intrauterine in cephalic presentation. motion is identified by technologist. Placenta is noted posterior and grade 2 without evidence for placenta previa or abruption. Amniotic fluid volume is elevated and consistent with polyhydramnios. Cervix measures 4.4 cm in length and appears closed.. Selected gestational age: 35 weeks 2 days with ENMA 07/17/2021. FHR equals 134 beats per minute. TETO: 26.8 cm (7.8-24.9) Biophysical profile score: 8/8 Umbilical artery SD ratio: 2.09 (1.67-3.57) IMPRESSION: Single live advanced gestation in cephalic presentation. Polyhydramnios suggested based on TETO. Biophysical profile score normal. <Electronically signed by Lucho Valles > 06/14/21 0924
== END ==
LOC: M WHC 08:09
PROVIDERS: ATTEND Advanced Practice Midwife
DX: I10 Essential (primary) hypertension (principal)

== ENCOUNTER 2021-06-18 16:54 | Outpatient (CLI) | payer OTHER ==
[~2021-06-18] VITALS: Ht 160 cm; Wt 91.6 kg
[2021-06-18 17:19] VITALS: BP 133/82
[2021-06-18 17:34] VITALS: BP 137/83
[2021-06-18 17:48] LABS: HEMATOCRIT 36.9 % (36.0-47.0); HEMOGLOBIN 12.1 g/dl (12.0-15.5); MEAN CORPUSCULAR HGB CONC 32.8 g/dl (32.0-36.5); MEAN CORPUSCULAR VOLUME 91.3 fl (80.0-96.0); PLATELET COUNT, AUTOMATED 185 10^3/uL (150-450); RED BLOOD COUNT 4.04 10^6/uL (4.00-5.40); WHITE BLOOD COUNT 13.7 10^3/uL (4.0-10.0)
[2021-06-18 17:49] VITALS: BP 128/79
[2021-06-18 18:04] VITALS: BP 128/80
[2021-06-18 18:12] LABS: ALT/SGPT 19 U/L (12-78); BILIRUBIN,TOTAL 0.2 MG/DL (0.2-1.0); CREATININE FOR GFR 0.58 MG/DL (0.55-1.30); GLOMERULAR FILTRATION RATE > 60.0 (>60); LDH LACTATE DEHYDROGENASE 124 U/L (84-246)
[2021-06-18 18:19] VITALS: BP 132/82
--- NOTE | 2021-06-18 18:31 | IPNPDOC ---
Text Note Date of Service The patient was seen on 06/18/21. NOTE Subjective: Carolyn is a at 35.6 weeks gestation with an ENMA of 07/17/21. She presented to the office today with complaints of a headache that hasn't resolved with Tylenol. She reports multiple headaches/migraines throughout her . Reports this one to be a 3-4/10. Currently taking 200 mg BID of Labetalol. History of preeclampsia with severe features with her last baby in 2016. She has a history of migraines. She reports contractions and active movement. She denies leaking of fluid or vaginal bleeding. Objective: Labs and VS: see below. Normotensive FHR: 130, moderate variability, positive accelerations, no decelerations. [place]: irregular General: Alert and oriented. Does not appear to be in any distress. Sitting and watching tv, while on her phone. Respiratory: Regular rate and rhythm without any use of accessory muscles. Abdomen: gravid and not-tender to palpation Extremities: Generalized edema lower extremities. No clonus. Assessment: IUP at 35.6 weeks gestation, CHTN with superimposed preeclampsia, Hx of migraines, Category I FHR tracing, normotensive Plan: Reviewed labs with Dr. Gallegos. Recommends discharge to home with IOL at 37 weeks. Induction scheduled for 06/26/21. Reviewed induction process. She has close follow-up this week with a BPP . Encouraged BP check at office when she gets her BPP. She declined medication to help with her headache. Encouraged increased PO fluids since she reports her headaches occur mostly at night. Discharge to home with precautions. She has an appointment for next week and was encouraged to keep her appointment. She is to call with any changes or if headache doesn't get better or gets worse. Reviewed access to care, kick count, labor signs, preeclamptic symptoms and danger signs to report. VS,[place], I+O VS, [place], I+O Laboratory Tests 06/18/21 17:36 Item Value Date Time White Blood Count 13.7 10^3/uL H 06/18/21 173 Red Blood Count 4.04 10^6/uL 06/18/21 173 Hemoglobin 12.1 g/dl 06/18/21 173 Hematocrit 36.9 % 06/18/21 173 Mean Corpuscular Volume 91.3 fl 06/18/21 1736 Mean Corpuscular Hemoglobin 30.0 pg 06/18/21 1736 Mean Corpuscular Hemoglobin Concent 32.8 g/dl 06/18/21 1736 Platelet Count 185 10^3/uL 06/18/21 1736 Red Cell Distribution Width 13.1 % 06/18/21 1736 Item Value Date Time Creatinine 0.58 MG/DL 06/18/21 1736 Glomerular Filtration Rate > 60.0 06/18/21 1736 Uric Acid 4.0 MG/DL 06/18/21 1736 Total Bilirubin 0.2 MG/DL 06/18/21 1736 Aspartate Amino Transf (AST/SGOT) 11 U/L 06/18/21 1736 Alanine Aminotransferase (ALT/SGPT) 19 U/L 06/18/21 1736 Lactate Dehydrogenase 124 U/L 06/18/21 1736 Item Value Date Time Urine Random Creatinine 38.1 MG/DL 06/18/21 1802 Urine Random Total Protein 14.1 MG/DL H 06/18/21 1802 Spot urine is 0.37 RICK LLANOS CNM Jun 18, 2021 18:31
[2021-06-18 18:36] LABS: CREATININE,RANDOM URINE 38.1 MG/DL; TOTAL PROTEIN,RANDOM URINE 14.1 MG/DL (0.0-12.0)
[2021-06-18] MEDS ORDERED: ACET-897 PO (18:58)
[2021-06-18] MEDS ORDERED: FIOR1CAP PO (18:58)
[2021-06-18] MEDS ORDERED: HOME MED LIST COMPLETE! XX SCH (19:30)
== END 2021-06-18 18:53 | disposition home or self-care (01) ==
LOC: M LDO 16:54
PROVIDERS: ATTEND Advanced Practice Midwife
DX: O09.293 Supervision of pregnancy with other poor reproductive or obstetric history, third trimester (principal); O99.353 Diseases of the nervous system complicating pregnancy, third trimester; G43.909 Migraine, unspecified, not intractable, without status migrainosus; Z3A.35 35 weeks gestation of pregnancy; Z79.899 Other long term (current) drug therapy

== ENCOUNTER → 2021-06-19 | Outpatient (REF) | payer OTHER ==
[~2021-06-19] MED LIST changes: +ACET-897 PO; +FIOR1CAP PO
== END ==
LOC: M SFHCWAGY 12:44
PROVIDERS: ATTEND Advanced Practice Midwife
DX: O10.019 Pre-existing essential hypertension complicating pregnancy, unspecified trimester (principal)

== ENCOUNTER → 2021-06-21 | Outpatient (CLI) | payer OTHER ==
--- NOTE | 2021-06-21 09:49 | REP ---
INDICATION: HYPERTENSION,BPP,TETO,GROWTH COMPARISON: 06/14/2021 TECHNIQUE: Transabdominal obstetrical ultrasound with color Doppler evaluation. FINDINGS: Examination demonstrates a single live intrauterine in cephalic presentation. motion is identified by technologist. Placenta is noted posterior and grade 2 without evidence for placenta previa or abruption. Amniotic fluid volume is normal. Selected gestational age: 36 weeks 2 days with ENMA 07/17/2021. Gestational age by current measurements 36 weeks 0 days with ENMA 07/19/2021. FHR equals 130 beats per minute. Estimated weight by current biometric all measurements 2812 grams (44thpercentile). TETO: 21.5 cm Biophysical profile score: 8/8 Umbilical artery SD ratio: 2.21 IMPRESSION: 1. Single live intrauterine in cephalic presentation. 2. Estimated weight and growth within normal limits. 3. Amniotic fluid volume is upper normal. 4. Biophysical profile score normal. <Electronically signed by Lucho Valles > 06/21/21 09
== END ==
LOC: M WHC 06:14
PROVIDERS: ATTEND Advanced Practice Midwife
DX: O10.013 Pre-existing essential hypertension complicating pregnancy, third trimester (principal)

== ENCOUNTER 2021-06-25 16:09 | Inpatient (IN) | payer OTHER ==
[~2021-06-25] VITALS: Ht 160 cm; Wt 91.7 kg
[2021-06-25 16:29] VITALS: BP 146/94
[2021-06-25] MEDS ORDERED: HOME MED LIST COMPLETE! XX SCH (16:30)
[2021-06-25 16:46] VITALS: BP 140/95
[2021-06-25 17:02] VITALS: BP 137/88
[2021-06-25 17:16] VITALS: BP 141/94
[2021-06-25 17:31] VITALS: BP 143/92
[2021-06-25 17:46] VITALS: BP 145/90
[2021-06-25] MEDS ORDERED: LACTATED RINGER'S 1000 ML IV STA (18:02)
[2021-06-25] MEDS ORDERED: OXYTOCIN DRIP 30 UNITS in IV 1 EA IV PRN (18:05)
[2021-06-25] MEDS ORDERED: LIDOCAINE 1% MDV 20ML VIAL INFIL PRN (18:05)
[2021-06-25] MEDS ORDERED: CARBOPROST TROMETHAMINE 250 MCG/ML AMP IM PRN (18:05)
[2021-06-25] MEDS ORDERED: TRANEXAMIC ACID INJection 1,000 MG in NS 100 ML IV PRN (18:05)
--- NOTE | 2021-06-25 18:19 | HPEPDOC ---
Obstetrical History & Physical General Date of Admission Jun 25, 2021 at 17:13 Primary Care Physician: RICK LLANOS CNM History of Present Illness Carolyn is a 30-year-old female who is a with an ENMA of 07/17/21 based off of her LMP. She initiated care in her first trimester with [facility]. Her has been complicated by CHTN with superimposed preeclampsia, which she was diagnosed on 06/18/21 with a spot urine of 0.37. Her CHTN has been managed with Labetalol 200 mg BID. She is also a smoker, has ADHD and using Adderall 5 mg BID and tested positive for chlamydia in her first trimester of . She presents to L&D with complaints of contractions. She denies preeclamptic symptoms, vaginal bleeding, or leaking of fluid. Chief Complaint: Contractions, pre-term, Other (Chronic Hyertension with superimposed preeclampsia) Information Provided By: Patient Age: 30 : 5 Term: 1 Pre-term: 1 Abortions: 2 Livin Care Care: Good Care Dating Final EDC: Jul 17, 2021 Final EDC by: LMP LMP: Oct 10, 2020 EGA at Admission: 36.6 Antepartum Course Diagnos(e)s Chronic hypertension with superimposed preeclampsia Polyhydramnios Height (inches): 63 Pre- weight (lbs.): 171 Admission Weight (lbs.): 201 Change in Weight (lbs.): 30 Past Medical History Past Obstetrical History #1: Past Obstetrical History: Primgravida Date of Delivery: Aug 24, 2014 Gestation: 38 Type of Delivery: Spontaneous Vaginal Del. Sex of : Male Complications: No Past Obstetrical History #2: Past Obstetrical History: Multigravida Date of Delivery: Aug 04, 2016 Gestation: 36 Type of Delivery: Spontaneous Vaginal Del. 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 History: Spontaneous , Theraputic , History of STD Past Medical History Medical History Essential Hypertension Migraines Surgical History: Breast reduction Family History Significant Family History: Cancer (breast ), Heart disease, Hypertension Social History Social history FOB of this child is involved and at the bedside Marital Status: Family situation: Spouse/partner home * Smoker: current smoker Alcohol: Denies Drugs: denies Allergies Coded Allergies: nickel (Verified Allergy, Mild, RASH, 06/08/21) Serotonin 5HT-3 Antagonists (Verified Adverse Reaction, Mild, aggitated, 06/08/21) Medications Scheduled Dextroamphetamine/Amphetamine (Adderall 5 mg Tablet) 5 Mg Tablet, 5 MG PO TID Labetalol HCl (Labetalol HCl) 200 Mg Tablet, 1 TAB PO BID Omeprazole (Omeprazole) 10 Mg Capsule.dr, 20 MG PO DAILY No.137/Iron/Folic Acd ( Vitamin Tablet) 1 Each Tablet, 1 TAB PO DAILY Scheduled PRN Acetaminophen (Tylenol Extra Strength) 500 Mg Tablet, 1,000 MG PO for HEADACHE Physical Examination Physical Examination GENERAL: Alert and oriented times three. BREAST: . ABDOMEN: Gravid and non-tender to touch. FETUS: Is vertex (VTX) by sterile vaginal examination (SVE), fetus is vertex (VTX) by Roshan. HEART RATE: Regular rate and rhythm. LUNGS: Clear to auscultation (CTA). EXTREMITIES: Generalized edema. No clonus. Deep tendon reflexes (DTRs) + 2. Vital Signs/I&O Vital Signs Date Time Temp Pulse Resp B/P (MAP) Pulse Ox O2 Delivery O2 Flow Rate FiO2 06/25/21 16:29 97.7 116 18 146/94 (111) Laboratory Data 24H LABS Laboratory Tests 2 06/25/21 17:16: Serology Scanned Report Hepatitis B Testing Pertinent Laboratoy Data Blood Type: A+ RBC Antibody Screen: Negative HIV: Negative Hepatitis B: Negative Hepatitis C: Negative Rapid Plasma Reagin: Nonreactive Rubella: Immune Chlamydia/Gonorrhea: Positive (treatment of cure negative) Group B Streptococcus: Positive (positive urine in firt trimester) Anatomy Ultrasound Ultrasound Date: Apr 02, 2021 Placenta Location: Posterior Normal Anatomy: Yes Placenta Previa: No Vaginal Examination Dilation: 4 cm Effacement: other (thick) Station: -2 Cervical Consistency: Soft Cervical Position: Anterior Presentation: Cephalic presentation Assessment Heart Rate (FHR): 130 Variability: Moderate Accelerations: Positive Decelerations: None Tocometer Contractions: Yes Frequency: other (2 to 6 minutes) Multi-drug resistant Organism: No history of MDRO Assessment/Plan Assessment IUP at 36.6 weeks gestation CHTN with superimposed preeclampsia Category I FHR tracing GBS negative Plan Admit to L&D. If patient doesn't start active labor on her own we will start her induction at midnight when she is 37 weeks per plan. OOB ad kia. Diet: regular now then switch to clears with IV Pitocin. Group B Streptococcus (GBS) positive from urine. Will start PCN per order with the start of induction. Labs and intravenous (IV) per unit protocol. Counseled on Cytotec and IV Pitocin for induction of labor (IOL). Anesthesia consult per patient's request. Lactated Ringers (LR): Bolus 500 mL prior to epidural, then at 125 mL/hr. Anticipate cervical ripening and C-S as appropriate. RICK LLANOS CNM Jun 25, 2021 18:19
[2021-06-25] MEDS ORDERED: PENICILLIN G POTASSIUM IV 5 MU in D5W MINI-BAG PLUS 100 ML IV STA (18:26)
[2021-06-25 18:54] LABS: HEMOGLOBIN 12.3 g/dl (12.0-15.5); MEAN CORPUSCULAR HGB CONC 33.2 g/dl (32.0-36.5); MEAN CORPUSCULAR VOLUME 90.2 fl (80.0-96.0); PLATELET COUNT, AUTOMATED 197 10^3/uL (150-450); WHITE BLOOD COUNT 13.6 10^3/uL (4.0-10.0)
[2021-06-25 19:20] LABS: ALT/SGPT 20 U/L (12-78); BILIRUBIN,TOTAL 0.2 MG/DL (0.2-1.0); GLOMERULAR FILTRATION RATE > 60.0 (>60); LDH LACTATE DEHYDROGENASE 132 U/L (84-246); URIC ACID 4.1 MG/DL (2.6-6.0)
[2021-06-25] MEDS ORDERED: PENICILLIN G POTASSIUM IV 2.5 MU in IV 1 EA IV SCH (22:30)
[2021-06-26] VITALS (45 sets, daily range): BP systolic 105–191; BP diastolic 55–103
[2021-06-26] MEDS ORDERED: miSOPROStol 50MCG 1/2 TABLET PO SCH (02:30)
[2021-06-26] MEDS: LABETALOL 200 MG TAB PO SCH ×3 (02:44→19:52)
[2021-06-26] MEDS ORDERED: PENICILLIN G POTASSIUM IV 5 MU in D5W MINI-BAG PLUS 100 ML IV STA (03:00)
[2021-06-26] MEDS ORDERED: FENTANYL 2MCG/ML ROPIVACAINE 0.2% IN 0.9% NACL 100ML IVBAG As Ordered ONE (03:15)
[2021-06-26] MEDS ORDERED: NALOXONE INJ 0.4MG/1ML VIAL (J2310 PER 1MG) IV PRN (03:45)
[2021-06-26] MEDS ORDERED: LACTATED RINGER'S 1000 ML IV PRN (03:45)
[2021-06-26] MEDS ORDERED: REFRIGERATOR IV KEYS XX PRN (03:45)
[2021-06-26] MEDS ORDERED: diphenhydrAMINE 50MG/ML VIAL (J1200) IV PRN (03:45)
[2021-06-26] MEDS ORDERED: ePHEDrine SULFATE 25 MG/5 ML(5MG/ML) SYRINGE IV PRN (03:45)
[2021-06-26] MEDS ORDERED: EPIDURAL COMMENT XX SCH (03:45)
[2021-06-26] MEDS ORDERED: EPIDURAL/PCA KEYS XX PRN (03:45)
[2021-06-26] MEDS ORDERED: ONDANSETRON 4MG/2ML VIAL IV PRN (03:45)
[2021-06-26] MEDS: FENTANYL/ROPIVACAINE/NACL BAG 100 ML EPIDURAL SCH ×3 (06:13→16:41)
[2021-06-26] MEDS ORDERED: OXYTOCIN DRIP 30 UNITS in IV 1 EA IV SCH ×2 (08:10→18:35)
[2021-06-26] MEDS: PENICILLIN G POTASSIUM IV 2.5 MU in IV 1 EA IV SCH ×3 (08:41→16:48)
[2021-06-26] MEDS ORDERED: ACETAMINOPHEN 500 MG TAB PO ONE (12:35)
--- NOTE | 2021-06-26 15:10 | IPNPDOC ---
Obstetrical Progress Note Date of Service Jun 26, 2021 Subjective Patient is comfortable with her epidural. Denies any loss of fluid vaginal bleeding. She denies any current headache visual changes right upper quadrant pain shortness breath or chest pain. Objective Vital Signs Date Time Temp Pulse Resp B/P (MAP) Pulse Ox O2 Delivery O2 Flow Rate FiO2 06/26/21 13:54 86 18 132/72 (92) Room Air 06/26/21 11:22 97.4 06/26/21 07:39 97 Assessment Heart Rate Tracing: Category I Tocometer Contractions: Yes Frequency: every 3-7 min. (Pitocin at 6milliunits/min) Sterile Vaginal Examination Dilation: 6 cm Effacement (%): 50% Station: 0 Cervical Consistency: Soft Cervical Position: Anterior Postion/Presentation: Cephalic presentation (Confirmed by bedside ultrasound prior to artificial rupture membranes) Assessment and Plan Status: Reassuring Additional Comments Artificial rupture of membranes clear fluid Continue with Pitocin Hold labetalol dose given that her blood pressure is normotensive KITTY DOHERTY DO Jun 26, 2021 15:10
[2021-06-26] MEDS ORDERED: LR 1,000 ML IV SCH ×2 (15:35→18:35)
[2021-06-26] MEDS ORDERED: OMEPRAZOLE 20 MG CAP PO ONE (15:35)
[2021-06-26] MEDS ORDERED: IBUPROFEN 800 MG TAB PO PRN (18:35)
[2021-06-26] MEDS ORDERED: MEASLES,MUMPS,RUBELLA VACCINE INJ (MMR-II) (90707) SC SCH (18:35)
[2021-06-26] MEDS ORDERED: DIBUCAINE 1% OINTMENT 30GM TOP PRN (18:35)
[2021-06-26] MEDS ORDERED: DOCUSATE SODIUM 100MG CAPSULE PO PRN (18:35)
[2021-06-26] MEDS ORDERED: RHOGAM 300 MCG (1500 IU) INJ (J2790) IM SCH (18:35)
[2021-06-26] MEDS ORDERED: ACETAMINOPHEN TAB 650MG DOSE (2X325MG) PO PRN (18:35)
--- NOTE | 2021-06-26 19:30 | DNPDOC ---
[facility] Delivery Note Delivery Note DATE OF DELIVERY: 06/26/2021 TIME OF DELIVERY: 1824 Spontaneous vaginal delivery. WINE MAKER: Dr. Bradford Najera DO FACOG ANESTHESIA: Epidural LACERATION: None ESTIMATED BLOOD LOSS: 200 mL. FINDINGS: 6 pound 7 ounce (2920g) male infant, Score 9 and 9. DELIVERY SUMMARY: The active phase and second stage of labor progressed in normal fashion. She received Pitocin augmentation throughout her labor course. The head delivered in the PHILIP position, and restituted LOT. No nuchal cord was noted. The anterior shoulder delivered with gentle downward guidance and the remainder of the body delivered with ease. The baby was placed on the patient's chest. Delayed cord clamping occurred for approximately 1 minute. The cord was then doubly clamped and cut. IV Pitocin was bolused to actively manage the third stage of labor. The placenta delivered intact without any difficulty within 10 minutes of delivery. The uterine fundus was noted to be firm and 2 cm below the umbilicus. The cervix, vagina, vulva and perineum were inspected. No laceration. Excellent hemostasis was noted. Sponge, needle and instrument counts were correct per protocol. DO KESHIA Castro JONATHAN R. DO Jun 26, 2021 19:30
[2021-06-27] VITALS (7 sets, daily range): BP systolic 119–141; BP diastolic 64–96
--- NOTE | 2021-06-27 06:15 | IPNPDOC ---
Progress Note Date of Service: Jun 27, 2021 Day#: 1 Progress Note SUBJECT: Status post . She has been ambulating, voiding spontaneously witho ut issue and tolerating regular diet. Lochia decreasing/minimal. Pain is well- controlled. Denies headache, visual changes, right upper quadrant pain, shortness breath or chest pain. OBJECTIVE: VITAL SIGNS: Mild HTN, afebrile. Alert and oriented times three. Abdomen: Fundus firm at U-2. Soft, NTTP. ASSESSMENT: Status post uncomplicated spontaneous vaginal delivery. CHTN/super imposed pre-e. Vitals stable/mild HTN, afebrile, hemodynamically stable with no evidence of infection. PLAN: Continue current dose of Labetalol 200mg BID. Discharge to home tomorrow. Tylenol and Motrin for pain. Routine instructions/precautions reviewed. Routine PP visit in 6 weeks in clinic. VS, I&O, 24H, Fishbone Vital Signs/I&O Vital Signs Date Time Temp Pulse Resp B/P (MAP) Pulse Ox O2 Delivery O2 Flow Rate FiO2 06/27/21 06:09 97.8 88 16 125/68 (87) 98 Room Air I&O- Last 24 Hours up to 6 AM 06/27/21 06:00 Intake Total 3631.0 ml Output Total 1475 ml Balance 2156.0 ml KITTY DOHERTY DO Jun 27, 2021 06:14
[2021-06-27] MEDS: LABETALOL 200 MG TAB PO SCH ×2 (08:42→21:19)
[2021-06-27] MEDS: PRENATAL VITAMINS CHEWABLE TABLET PO SCH (08:42)
[2021-06-27] MEDS: ACETAMINOPHEN 500 MG TAB PO PRN ×2 (09:05→14:45)
[2021-06-28 06:00] VITALS: BP 143/93
[2021-06-28] MEDS: PRENATAL VITAMINS CHEWABLE TABLET PO SCH (09:07)
[2021-06-28 09:08] VITALS: BP 141/98
[2021-06-28] MEDS: LABETALOL 200 MG TAB PO SCH (09:08)
[2021-06-28] MEDS ORDERED: IBUP80TA PO (11:10)
[2021-06-28] MEDS ORDERED: ACET-683 PO (11:10)
== END 2021-06-28 12:01 | disposition home or self-care (01) | DRG 560 ==
LOC: M LDO 16:09 → M LDI 17:13 → M OBS 06-26 20:50
PROVIDERS: ADMIT Advanced Practice Midwife; ATTEND Obstetrics & Gynecology
PROC: 10E0XZZ Delivery of Products of Conception, External Approach (ICD-10-PCS; principal; 2021-06-26)
PROC: 10907ZC Drainage of Amniotic Fluid, Therapeutic from Products of Conception, Via Natural or Artificial Opening (ICD-10-PCS; 2021-06-26)
DX: O11.4 Pre-existing hypertension with pre-eclampsia, complicating childbirth (principal); O99.344 Other mental disorders complicating childbirth; F17.200 Nicotine dependence, unspecified, uncomplicated; O99.334 Smoking (tobacco) complicating childbirth; F90.9 Attention-deficit hyperactivity disorder, unspecified type; Z3A.36 36 weeks gestation of pregnancy; Z37.0 Single live birth

== ENCOUNTER → 2021-11-07 | Outpatient (REF) | payer OTHER ==
[~2021-11-07] MED LIST changes: +ACET-683 PO; -SUMA6INJ16; +SUMA6INJ25
[2021-11-07 13:47] LABS: APPEARANCE, URINE HAZY (CLEAR); BACTERIA, URINE AUTO NEGATIVE (NEGATIVE); BILIRUBIN, URINE AUTO NEGATIVE (NEGATIVE); BLOOD, URINE BLOOD NEGATIVE (NEGATIVE); COLOR, URINE YELLOW (YELLOW); GLUCOSE, URINE (UA) AUTO NEGATIVE (NEGATIVE); KETONE, URINE AUTO TRACE mg/dL (NEGATIVE); LEUKOCYTE ESTERASE, URINE AUTO TRACE (NEGATIVE); MUCUS, URINE SMALL (NEGATIVE); NITRITE, URINE AUTO NEGATIVE (NEGATIVE); PROTEIN, URINE AUTO NEGATIVE (NEGATIVE); RBC, URINE AUTO 1 /HPF (0-3); SPECIFIC GRAVITY URINE AUTO 1.024 (1.002-1.035); SQUAMOUS EPITHELIAL CELL UR AU 6 /HPF (0-6); WBC, URINE AUTO 2 /HPF (0-3)
== END ==
LOC: M SFHCPLAZ 13:07
PROVIDERS: ATTEND Nurse Practitioner Family
DX: N39.0 Urinary tract infection, site not specified (principal)

== ENCOUNTER → 2021-12-03 | Outpatient (REF) | payer OTHER ==
[2021-12-03 17:24] LABS: APPEARANCE, URINE CLOUDY (CLEAR); BACTERIA, URINE AUTO NEGATIVE (NEGATIVE); BILIRUBIN, URINE AUTO NEGATIVE (NEGATIVE); BLOOD, URINE BLOOD NEGATIVE (NEGATIVE); COLOR, URINE YELLOW (YELLOW); GLUCOSE, URINE (UA) AUTO NEGATIVE (NEGATIVE); KETONE, URINE AUTO NEGATIVE (NEGATIVE); LEUKOCYTE ESTERASE, URINE AUTO 3+ (NEGATIVE); MUCUS, URINE SMALL (NEGATIVE); NITRITE, URINE AUTO NEGATIVE (NEGATIVE); PROTEIN, URINE AUTO NEGATIVE (NEGATIVE); RBC, URINE AUTO 1 /HPF (0-3); SPECIFIC GRAVITY URINE AUTO 1.018 (1.002-1.035); SQUAMOUS EPITHELIAL CELL UR AU 19 /HPF (0-6); UROBILINOGEN, URINE AUTO 0.2 mg/dL (0.0-2.0); WBC, URINE AUTO 12 /HPF (0-3)
[2021-12-03 17:31] LABS: BASO % 0.4 % (0.0-1.0); EOS # 0.2 10^3/uL (0.0-0.5); EOS % 2.3 % (0.0-3.0); HEMATOCRIT 43.7 % (36.0-47.0); HEMOGLOBIN 13.6 g/dl (12.0-15.5); LYMPH # 2.2 10^3/uL (1.5-5.0); LYMPH % 24.5 % (24.0-44.0); MEAN CORPUSCULAR HEMOGLOBIN 27.4 pg (27.0-33.0); MEAN CORPUSCULAR HGB CONC 31.1 g/dl (32.0-36.5); MEAN CORPUSCULAR VOLUME 88.1 fl (80.0-96.0); MONO # 0.7 10^3/uL (0.0-0.8); MONO % 8.2 % (2.0-8.0); NEUTROPHILS # 5.8 10^3/uL (1.5-8.5); NEUTROPHILS % 64.4 % (36.0-66.0); PLATELET COUNT, AUTOMATED 291 10^3/uL (150-450); RED BLOOD COUNT 4.96 10^6/uL (4.00-5.40)
[2021-12-03 18:06] LABS: ALBUMIN 3.9 GM/DL (3.2-5.2); ALT/SGPT 37 U/L (12-78); BILIRUBIN,TOTAL < 0.1 MG/DL (0.2-1.0); BLOOD UREA NITROGEN 11 MG/DL (7-18); CALCIUM LEVEL 9.4 MG/DL (8.5-10.1); CARBON DIOXIDE LEVEL 28 MEQ/L (21-32); CHLORIDE LEVEL 105 MEQ/L (98-107); CHOLESTEROL LEVEL 215 MG/DL (<200); CHOLESTEROL RISK RATIO 5.119 (<5); CREATININE FOR GFR 1.03 MG/DL (0.55-1.30); GLOMERULAR FILTRATION RATE > 60.0 (>60); GLUCOSE, FASTING 71 MG/DL (70-100); HDL CHOLESTEROL 42 MG/DL (>40); LDL CHOLESTEROL 149 MG/DL (<100); NON-HDL-C 173 MG/DL; POTASSIUM SERUM 3.9 MEQ/L (3.5-5.1); SODIUM LEVEL 140 MEQ/L (136-145); TOTAL PROTEIN 7.5 GM/DL (6.4-8.2); TRIGLYCERIDES LEVEL 119 MG/DL (<150)
== END ==
LOC: M SFHCCAPE 09:49
PROVIDERS: ATTEND Physician Assistant
DX: E78.5 Hyperlipidemia, unspecified (principal); F90.9 Attention-deficit hyperactivity disorder, unspecified type; R39.15 Urgency of urination

== ENCOUNTER → 2021-12-04 | Outpatient (REF) | payer OTHER ==
[2021-12-04 16:02] LABS: APPEARANCE, URINE HAZY (CLEAR); BACTERIA, URINE AUTO 1+ (NEGATIVE); BILIRUBIN, URINE AUTO NEGATIVE (NEGATIVE); BLOOD, URINE BLOOD NEGATIVE (NEGATIVE); COLOR, URINE YELLOW (YELLOW); GLUCOSE, URINE (UA) AUTO NEGATIVE (NEGATIVE); KETONE, URINE AUTO NEGATIVE (NEGATIVE); LEUKOCYTE ESTERASE, URINE AUTO TRACE (NEGATIVE); MUCUS, URINE SMALL (NEGATIVE); NITRITE, URINE AUTO NEGATIVE (NEGATIVE); PROTEIN, URINE AUTO NEGATIVE (NEGATIVE); RBC, URINE AUTO 1 /HPF (0-3); SPECIFIC GRAVITY URINE AUTO 1.016 (1.002-1.035); SQUAMOUS EPITHELIAL CELL UR AU 4 /HPF (0-6); UROBILINOGEN, URINE AUTO 0.2 mg/dL (0.0-2.0); WBC, URINE AUTO 5 /HPF (0-3)
== END ==
LOC: M SFHCCAPE 11:45
PROVIDERS: ATTEND Physician Assistant
DX: R82.90 Unspecified abnormal findings in urine (principal)

== ENCOUNTER → 2022-07-09 | Outpatient (REF) | payer OTHER ==
[~2022-07-09] MED LIST changes: +EXCETAB32 PO; -EXCETAB33 PO; -LABE100T4 PO; +LABE100T6 PO; -LABE200T32 PO; +LABE200T5 PO
== END ==
LOC: M SFHCCAPE 12:00
PROVIDERS: ATTEND Physician Assistant
DX: F90.9 Attention-deficit hyperactivity disorder, unspecified type (principal)

== ENCOUNTER → 2022-10-24 | Outpatient (CLI) | payer OTHER ==
[2022-10-24 15:32] LABS: LDH LACTATE DEHYDROGENASE 127 U/L (120-246)
[2022-10-24 15:33] LABS: ALT/SGPT 9 U/L (7.0-40); AST/SGOT 10 U/L (<34); BILIRUBIN,TOTAL 0.2 MG/DL (0.3-1.2); CREATININE FOR GFR 0.53 MG/DL (0.55-1.30); GLOMERULAR FILTRATION RATE > 60.0 (>60)
[2022-10-24 15:46] LABS: TOTAL PROTEIN,RANDOM URINE 15.5 MG/DL (0.0-14.0)
[2022-10-24 15:51] LABS: CREATININE,RANDOM URINE 119.3 MG/DL
[2022-10-24 16:00] LABS: HIV 1&2 SCREEN CENTAUR NEGATIVE (NEGATIVE)
[2022-10-24 16:08] LABS: HEPATITIS C VIRUS ABY INDEX 0.2 INDEX (<0.8)
[2022-10-24 16:51] LABS: GC DNA AMPLIFICATION NEGATIVE (NEGATIVE)
== END ==
LOC: M PLALAB 13:23
PROVIDERS: ATTEND Advanced Practice Midwife
DX: O10.019 Pre-existing essential hypertension complicating pregnancy, unspecified trimester (principal)

== ENCOUNTER → 2022-10-24 | Outpatient (CLI) | payer OTHER | LOC: M PLALAB 13:26 | PROVIDERS: ATTEND Advanced Practice Midwife | DX: Z34.81 Encounter for supervision of other normal pregnancy, first trimester (principal) ==

== ENCOUNTER → 2022-12-19 | Outpatient (CLI) | payer OTHER | LOC: M WHC 11:54 | PROVIDERS: ATTEND Specialist | DX: Z34.82 Encounter for supervision of other normal pregnancy, second trimester (principal) ==

== ENCOUNTER → 2023-02-03 | Outpatient (CLI) | payer OTHER ==
[2023-02-03 13:39] LABS: ALBUMIN 2.6 G/DL (3.2-5.2); ALKALINE PHOSPHATASE 93 U/L (46-116); ALT/SGPT 10 U/L (7.0-40); AST/SGOT 9 U/L (<34); BILIRUBIN,TOTAL 0.3 MG/DL (0.3-1.2); BLOOD UREA NITROGEN < 5 MG/DL (9-23); CALCIUM LEVEL 8.8 MG/DL (8.5-10.1); CARBON DIOXIDE LEVEL 23 MMOL/L (20-31); CHLORIDE LEVEL 104 MMOL/L (98-107); CREATININE FOR GFR 0.59 MG/DL (0.55-1.30); GLOMERULAR FILTRATION RATE > 60.0 (>60); GLUCOSE, FASTING 87 MG/DL (60-100); HEMATOCRIT 33.6 % (36.0-47.0); MEAN CORPUSCULAR HEMOGLOBIN 24.9 pg (27.0-33.0); MEAN CORPUSCULAR HGB CONC 29.8 g/dl (32.0-36.5); MEAN CORPUSCULAR VOLUME 83.8 fl (80.0-96.0); PLATELET COUNT, AUTOMATED 225 10^3/uL (150-450); POTASSIUM SERUM 4.1 MMOL/L (3.5-5.1); RED BLOOD COUNT 4.01 10^6/uL (4.00-5.40); SODIUM LEVEL 135 MMOL/L (136-145); TOTAL PROTEIN 6.5 G/DL (5.7-8.2); WHITE BLOOD COUNT 17.2 10^3/uL (4.0-10.0)
[2023-02-03 13:58] LABS: TOTAL PROTEIN,RANDOM URINE 23.5 MG/DL (0.0-14.0)
[2023-02-03 14:02] LABS: CREATININE,RANDOM URINE 84.8 MG/DL
[2023-02-03 14:55] LABS: GC DNA AMPLIFICATION NEGATIVE (NEGATIVE)
== END ==
LOC: M PLALAB 09:52
PROVIDERS: ATTEND Obstetrics & Gynecology
DX: Z34.92 Encounter for supervision of normal pregnancy, unspecified, second trimester (principal)

== ENCOUNTER 2023-02-05 13:25 | Outpatient (CLI) | payer OTHER ==
[2023-02-05] VITALS (25 sets, daily range): BP systolic 119–178; BP diastolic 68–94
[~2023-02-05] VITALS: Ht 162.6 cm; Wt 88.7 kg
[2023-02-05] MEDS ORDERED: HOME MED LIST COMPLETE! XX SCH (13:45)
[2023-02-05] MEDS ORDERED: LR 1,000 ML IV SCH (14:00)
[2023-02-05] MEDS ORDERED: ACETAMINOPHEN 500 MG TAB PO PRN (14:00)
[2023-02-05] MEDS ORDERED: ONDANSETRON 4MG 2ML VIAL IV PRN (14:25)
[2023-02-05 15:02] LABS: HEMATOCRIT 29.9 % (36.0-47.0); HEMOGLOBIN 9.1 g/dl (12.0-15.5); MEAN CORPUSCULAR HEMOGLOBIN 25.4 pg (27.0-33.0); MEAN CORPUSCULAR HGB CONC 30.4 g/dl (32.0-36.5); MEAN CORPUSCULAR VOLUME 83.5 fl (80.0-96.0); PLATELET COUNT, AUTOMATED 205 10^3/uL (150-450); RED BLOOD COUNT 3.58 10^6/uL (4.00-5.40)
[2023-02-05 15:14] LABS: TOTAL PROTEIN,RANDOM URINE 26.2 MG/DL (0.0-14.0)
[2023-02-05 15:19] LABS: CREATININE,RANDOM URINE 131.6 MG/DL
[2023-02-05 15:27] LABS: LDH LACTATE DEHYDROGENASE 210 U/L (120-246)
[2023-02-05 15:28] LABS: ALT/SGPT 12 U/L (7.0-40); AST/SGOT 19 U/L (<34); BILIRUBIN,TOTAL 0.2 MG/DL (0.3-1.2); CREATININE FOR GFR 0.54 MG/DL (0.55-1.30); GLOMERULAR FILTRATION RATE > 60.0 (>60)
[2023-02-05 15:30] LABS: URIC ACID 3.5 MG/DL (3.1-7.8)
[2023-02-05] MEDS ORDERED: CALCIUM CARBONATE 500 MG CHEW U/D PO PRN (16:25)
[2023-02-05] MEDS ORDERED: LABETALOL 200 MG TAB PO ONE (18:20)
== END 2023-02-05 19:00 | disposition home or self-care (01) ==
LOC: M LDO 13:25
PROVIDERS: ATTEND Advanced Practice Midwife
DX: O13.3 Gestational [pregnancy-induced] hypertension without significant proteinuria, third trimester (principal); O99.013 Anemia complicating pregnancy, third trimester; D64.9 Anemia, unspecified; O32.1XX9 Maternal care for breech presentation, other fetus; Z87.59 Personal history of other complications of pregnancy, childbirth and the puerperium; Z3A.30 30 weeks gestation of pregnancy
CPT/HCPCS: 76816; 76820; 82247; 82565; 82570; 83615; 84156; 84450; 84460; 84550; 85027; J2405

== ENCOUNTER 2023-03-21 16:07 | Inpatient (IN) | payer OTHER ==
[~2023-03-21] VITALS: Ht 162.6 cm; Wt 87.9 kg
[2023-03-21] VITALS (35 sets, daily range): BP systolic 83–208; BP diastolic 45–118
[~2023-03-21 16:07] MED LIST changes: -ADDE20CA3 PO; -IRON65TA2 PO; -LABE20TAB PO
[2023-03-21] MEDS ORDERED: ADDE20CA3 PO (16:28)
[2023-03-21] MEDS ORDERED: IRON65TA2 PO (16:28)
[2023-03-21] MEDS ORDERED: OMEP10CASR PO (16:28)
[2023-03-21] MEDS ORDERED: HOME MED LIST COMPLETE! XX SCH (16:30)
[2023-03-21] MEDS ORDERED: NIFEdipine 10 MG CAP PO STA ×2 (16:40→17:01)
[2023-03-21] MEDS ORDERED: NIFEdipine 10 MG CAP As Ordered ONE (16:42)
[2023-03-21] MEDS ORDERED: CARBOPROST TROMETHAMINE 250 MCG/ML AMP IM PRN (16:45)
[2023-03-21] MEDS ORDERED: OXYTOCIN DRIP 30 UNITS in IV 1 EA IV PRN (16:45)
[2023-03-21] MEDS ORDERED: TRANEXAMIC ACID INJection 1,000 MG in NS 100 ML IV PRN (16:45)
[2023-03-21] MEDS ORDERED: LIDOCAINE 1% MDV 20ML VIAL INFIL PRN (16:45)
[2023-03-21] MEDS ORDERED: OXYTOCIN DRIP 30 UNITS in IV 1 EA IV SCH (17:00)
[2023-03-21] MEDS ORDERED: MAG Sulf (L&D) 4 GM/100 ML 4 GM in IV 1 EA IV ONE (17:00)
[2023-03-21] MEDS ORDERED: PENICILLIN G POTASSIUM 5 MU IV 5 MU in D5W MINI-BAG PLUS 100 ML IV STA (17:12)
[2023-03-21 17:23] LABS: HEMATOCRIT 32.1 % (36.0-47.0); HEMOGLOBIN 9.4 g/dl (12.0-15.5); MEAN CORPUSCULAR HGB CONC 29.3 g/dl (32.0-36.5); MEAN CORPUSCULAR VOLUME 78.7 fl (80.0-96.0); PLATELET COUNT, AUTOMATED 183 10^3/uL (150-450); RED BLOOD COUNT 4.08 10^6/uL (4.00-5.40); WHITE BLOOD COUNT 14.9 10^3/uL (4.0-10.0)
[2023-03-21] MEDS: MAG Sulf (OBGYN) 20GM/500ML 20,000 MG in IV 1 EA IV SCH (17:28)
[2023-03-21 17:29] LABS: LDH LACTATE DEHYDROGENASE 207 U/L (120-246)
[2023-03-21 17:30] LABS: ALT/SGPT 11 U/L (7.0-40); AST/SGOT 20 U/L (<34); BILIRUBIN,TOTAL 0.4 MG/DL (0.3-1.2); CREATININE FOR GFR 0.62 MG/DL (0.55-1.30); CREATININE,RANDOM URINE 102.3 MG/DL; GLOMERULAR FILTRATION RATE > 60.0 (>60)
[2023-03-21 17:49] LABS: URIC ACID 4.3 MG/DL (3.1-7.8)
[2023-03-21] MEDS: LR 1,000 ML IV SCH ×2 (18:29→21:42)
[2023-03-21] MEDS ORDERED: diphenhydrAMINE 50MG/ML VIAL IV PRN (20:45)
[2023-03-21] MEDS ORDERED: ONDANSETRON 4MG 2ML VIAL IV PRN (20:45)
[2023-03-21] MEDS ORDERED: NALOXONE INJ 0.4MG/1ML VIAL IV PRN (20:45)
[2023-03-21] MEDS ORDERED: EPIDURAL/PCA KEYS XX PRN (20:45)
[2023-03-21] MEDS ORDERED: LR 500 ML IV PRN (20:45)
[2023-03-21] MEDS: FENTANYL/ROPIVACAINE/NACL BAG 100 ML EPIDURAL SCH (21:17)
[2023-03-21] MEDS: PEN G POT 3,000,000 UNIT/50 ML 3,000,000 UNIT in IV 1 EA IV SCH (21:42)
[2023-03-21] MEDS: ePHEDrine SULFATE 25 MG/5 ML(5MG/ML) SYRINGE IVP PRN ×3 (21:46→22:05)
[2023-03-21] MEDS ORDERED: ACETAMINOPHEN 500 MG TAB PO ONE (22:00)
[2023-03-22] VITALS (39 sets, daily range): BP systolic 96–139; BP diastolic 53–94
[2023-03-22] MEDS: PEN G POT 3,000,000 UNIT/50 ML 3,000,000 UNIT in IV 1 EA IV SCH ×2 (01:50→05:51)
[2023-03-22] MEDS: LR 1,000 ML IV SCH (01:54)
[2023-03-22] MEDS: MAG Sulf (OBGYN) 20GM/500ML 20,000 MG in IV 1 EA IV SCH ×2 (02:52→11:59)
[2023-03-22] MEDS: FENTANYL/ROPIVACAINE/NACL BAG 100 ML EPIDURAL SCH (04:16)
[2023-03-22] MEDS ORDERED: ACETAMINOPHEN 500 MG TAB PO ONE (04:30)
[2023-03-22] MEDS ORDERED: OMEPRAZOLE 20MG CAP PO ONE (04:30)
[2023-03-22] MEDS ORDERED: IBUPROFEN 800 MG TAB PO ONE (07:05)
[2023-03-22] MEDS ORDERED: ANUSOL HC CREAM 30GM TOP PRN (08:45)
[2023-03-22] MEDS ORDERED: IBUPROFEN 800 MG TAB PO PRN (08:45)
[2023-03-22] MEDS ORDERED: ACETAMINOPHEN TAB 650MG DOSE (2X325MG) PO PRN (08:45)
[2023-03-22] MEDS ORDERED: IBUPROFEN 600MG TAB PO PRN (08:45)
[2023-03-22] MEDS ORDERED: ACETAMINOPHEN 500 MG TAB PO PRN ×2 (08:45→17:20)
[2023-03-22] MEDS ORDERED: RHOGAM 300MCG (1500IU) INJ IM SCH (08:45)
[2023-03-22] MEDS ORDERED: DIBUCAINE 1% OINTMENT 30GM TOP PRN (08:45)
[2023-03-22] MEDS ORDERED: DOCUSATE SODIUM 100MG CAPSULE PO PRN (08:45)
[2023-03-22] MEDS: PRENATAL VITAMINS CHEWABLE TABLET PO SCH (09:35)
[2023-03-22] MEDS: LABETALOL 200 MG TAB PO SCH ×2 (09:36→21:05)
[2023-03-22] MEDS: PHENAZOPYRIDINE 100 MG TAB PO SCH ×2 (09:37→16:07)
[2023-03-22] MEDS ORDERED: METOCLOPRAMIDE INJ 10MG/2ML VIAL IV ONE (13:30)
[2023-03-22] MEDS ORDERED: PERCOCET 5MG/325MG TAB PO ONE (13:30)
[2023-03-23] VITALS (7 sets, daily range): BP systolic 115–142; BP diastolic 56–82
[2023-03-23] MEDS: PRENATAL VITAMINS CHEWABLE TABLET PO SCH (09:40)
[2023-03-23] MEDS: OMEPRAZOLE 20MG CAP PO SCH (09:41)
[2023-03-23] MEDS: LABETALOL 200 MG TAB PO SCH ×2 (09:42→21:07)
[2023-03-23] MEDS: IBUPROFEN 800 MG TAB PO PRN (21:45)
[2023-03-24 01:53] VITALS: BP 115/65
[2023-03-24 06:00] VITALS: BP 131/66
[2023-03-24] MEDS: PRENATAL VITAMINS CHEWABLE TABLET PO SCH (08:35)
[2023-03-24 08:36] VITALS: BP 131/66
[2023-03-24] MEDS: OMEPRAZOLE 20MG CAP PO SCH (08:36)
[2023-03-24] MEDS: LABETALOL 200 MG TAB PO SCH (08:36)
[2023-03-24] MEDS ORDERED: MEASLES,MUMPS,RUBELLA VACCINE INJ (MMR-II) SC.IMMUN ONE (09:00)
[2023-03-24 10:03] VITALS: BP 126/75
[2023-03-24] MEDS ORDERED: ACET-683 PO (10:16)
[2023-03-24] MEDS ORDERED: LABE20TAB PO (10:16)
[2023-03-24] MEDS ORDERED: IBUP80TA PO (10:16)
[2023-03-24] MEDS: IBUPROFEN 800 MG TAB PO PRN (11:13)
== END 2023-03-24 12:08 | disposition home or self-care (01) | DRG 560 ==
LOC: M LDO 16:07 → M LDI 16:43 → M OBS 03-22 16:30
PROVIDERS: ADMIT Advanced Practice Midwife; ATTEND Advanced Practice Midwife
PROC: 3E033VJ Introduction of Other Hormone into Peripheral Vein, Percutaneous Approach (ICD-10-PCS; 2023-03-21)
PROC: 10E0XZZ Delivery of Products of Conception, External Approach (ICD-10-PCS; principal; 2023-03-22)
PROC: 10907ZC Drainage of Amniotic Fluid, Therapeutic from Products of Conception, Via Natural or Artificial Opening (ICD-10-PCS; 2023-03-22)
DX: O11.4 Pre-existing hypertension with pre-eclampsia, complicating childbirth (principal); O99.344 Other mental disorders complicating childbirth; F17.210 Nicotine dependence, cigarettes, uncomplicated; O99.334 Smoking (tobacco) complicating childbirth; F90.9 Attention-deficit hyperactivity disorder, unspecified type; O10.02 Pre-existing essential hypertension complicating childbirth; Z79.899 Other long term (current) drug therapy; Z88.8 Allergy status to other drugs, medicaments and biological substances; Z91.048 Other nonmedicinal substance allergy status; Z37.0 Single live birth; Z3A.36 36 weeks gestation of pregnancy

== ENCOUNTER → 2023-03-21 | Outpatient (REF) | payer OTHER ==
[~2023-03-21] MED LIST changes: +ADDE20CA3 PO; +IRON65TA2 PO; +LABE20TAB PO
== END ==
LOC: M SFHCWAGY 15:22
PROVIDERS: ATTEND Specialist
DX: O10.013 Pre-existing essential hypertension complicating pregnancy, third trimester (principal)

== ENCOUNTER 2023-11-28 11:21 | Day surgery (SDC) | payer OTHER ==
[~2023-11-28] VITALS: Ht 162.6 cm; Wt 80.7 kg
[~2023-11-28 11:21] MED LIST changes: +ACETAMINOPHEN 1000MG 100ML IV BAG As Ordered ONE; +ADDE20CA3 PO; +IRON65TA2 PO; +KETAMINE HCL 200MG/20ML VIAL As Ordered ONE; +LABE20TAB PO; +LIDOCAINE 2% 100MG/5ML SDV (FOR ANES.) As Ordered ONE; +LR 1,000 ML IV SCH; +MIDAZOLAM INJ 2MG/2ML VIAL As Ordered ONE; +ONDANSETRON 4MG 2ML VIAL As Ordered ONE; +ROCURONIUM BROMIDE 50MG/5ML VIAL As Ordered ONE; +SUGAMMADEX SODIUM 500 MG/5 ML VIAL (BRIDION) As Ordered ONE; +fentaNYL 100 MCG/2 ML INJECTION As Ordered ONE; +propofoL 200 MG/20 ML VIAL As Ordered ONE
[2023-11-28] MEDS ORDERED: LR 1,000 ML IV SCH ×2 (11:30→14:00)
[2023-11-28 12:13] LABS: HEMATOCRIT 34.3 % (36.0-47.0); HEMOGLOBIN 10.1 g/dl (12.0-15.5); MEAN CORPUSCULAR HEMOGLOBIN 21.3 pg (27.0-33.0); MEAN CORPUSCULAR HGB CONC 29.4 g/dl (32.0-36.5); MEAN CORPUSCULAR VOLUME 72.2 fl (80.0-96.0); PLATELET COUNT, AUTOMATED 312 10^3/uL (150-450); RED BLOOD COUNT 4.75 10^6/uL (4.00-5.40); WHITE BLOOD COUNT 7.7 10^3/uL (4.0-10.0)
[2023-11-28 12:35] LABS: BLOOD UREA NITROGEN 8 MG/DL (9-23); CALCIUM LEVEL 8.7 MG/DL (8.5-10.1); CARBON DIOXIDE LEVEL 26 MMOL/L (20-31); CHLORIDE LEVEL 106 MMOL/L (98-107); CREATININE FOR GFR 0.77 MG/DL (0.55-1.30); GLOMERULAR FILTRATION RATE > 60.0 (>60); GLUCOSE, FASTING 101 MG/DL (60-100); POTASSIUM SERUM 3.7 MMOL/L (3.5-5.1); SODIUM LEVEL 137 MMOL/L (136-145)
[2023-11-28 12:48] LABS: HCG, SERUM QUALITATIVE NEGATIVE (NEGATIVE)
[2023-11-28] MEDS ORDERED: LABETALOL 100MG/20ML VIAL As Ordered ONE (13:06)
[2023-11-28] MEDS ORDERED: ONDANSETRON 4MG 2ML VIAL IV PRN (14:00)
[2023-11-28] MEDS ORDERED: oxyCODONE 5MG TAB PO PRN (14:00)
[2023-11-28] MEDS ORDERED: HYDROMORPHONE HCL 0.5 MG/ 0.5 ML SYRINGE IV PRN (14:00)
[2023-11-28] MEDS ORDERED: fentaNYL 100 MCG/2 ML INJECTION IV PRN (14:00)
[2023-11-28] MEDS ORDERED: fentaNYL 100 MCG/2 ML INJECTION As Ordered ONE (14:50)
[2023-11-28] MEDS ORDERED: propofoL 200 MG/20 ML VIAL As Ordered ONE (15:14)
[2023-11-28] MEDS ORDERED: ACETAMINOPHEN 1000MG 100ML IV BAG As Ordered ONE (15:14)
[2023-11-28 15:21] VITALS: BP 133/91; TEMP 96.8; O2SAT 99
[2023-11-28] MEDS ORDERED: ACETAMINOPHEN 500 MG TAB PO PRN (15:25)
== END 2023-11-28 15:55 | disposition home or self-care (01) ==
LOC: M SDC 11:21
PROVIDERS: ATTEND Obstetrics & Gynecology
DX: Z30.2 Encounter for sterilization (principal); I10 Essential (primary) hypertension; E03.9 Hypothyroidism, unspecified; J45.909 Unspecified asthma, uncomplicated; K21.9 Gastro-esophageal reflux disease without esophagitis; F17.210 Nicotine dependence, cigarettes, uncomplicated; Z79.899 Other long term (current) drug therapy; F32.A Depression, unspecified; F41.9 Anxiety disorder, unspecified; Z79.890 Hormone replacement therapy
CPT/HCPCS: 36415; 58661; 80048; 84703; 85027; 88302; 93005; J0131; J0665; J1100; J1920; J2250; J2405; J3010

== ENCOUNTER 2024-01-21 18:15 | Emergency (ER) | payer OTHER ==
[~2024-01-21 18:15] MED LIST changes: -ACETAMINOPHEN 1000MG 100ML IV BAG As Ordered ONE; -KETAMINE HCL 200MG/20ML VIAL As Ordered ONE; -LIDOCAINE 2% 100MG/5ML SDV (FOR ANES.) As Ordered ONE; -LR 1,000 ML IV SCH; -MIDAZOLAM INJ 2MG/2ML VIAL As Ordered ONE; -ONDANSETRON 4MG 2ML VIAL As Ordered ONE; -ROCURONIUM BROMIDE 50MG/5ML VIAL As Ordered ONE; -SUGAMMADEX SODIUM 500 MG/5 ML VIAL (BRIDION) As Ordered ONE; -fentaNYL 100 MCG/2 ML INJECTION As Ordered ONE; -propofoL 200 MG/20 ML VIAL As Ordered ONE
== END 2024-01-21 18:17 | disposition left against medical advice (07) ==
LOC: M ED 18:17
DX: Z53.21 Procedure and treatment not carried out due to patient leaving prior to being seen by health care provider (principal)

== ENCOUNTER → 2025-08-29 | Outpatient (CLI) | payer OTHER ==
[~2025-08-29] MED LIST changes: +ACET-1599 PO; -EXCETAB44 PO; -IBUP-1022 PO; +IBUP600T42 PO; -SUMA6INJ25; +SUMA6PEN5; -VERA180C3 PO; +VERA180C5 PO
[2025-08-29 12:14] LABS: BASO # 0.0 10^3/uL (0.0-0.2); BASO % 0.6 % (0.0-1.0); EOS # 0.3 10^3/uL (0.0-0.5); EOS % 3.7 % (0.0-3.0); LYMPH # 1.8 10^3/uL (1.5-5.0); LYMPH % 26.1 % (24.0-44.0); MONO # 0.4 10^3/uL (0.0-0.8); MONO % 6.3 % (2.0-8.0); NEUTROPHILS # 4.4 10^3/uL (1.5-8.5); NEUTROPHILS % 63.0 % (36.0-66.0); PLATELET COUNT, AUTOMATED 348 10^3/uL (150-450)
[2025-08-29 12:47] LABS: ALT/SGPT 20 U/L (7.0-40); AST/SGOT 13 U/L (<34); CALCIUM LEVEL 8.8 MG/DL (8.5-10.1); CARBON DIOXIDE LEVEL 27 MMOL/L (20-31); CHLORIDE LEVEL 106 MMOL/L (98-107); CHOLESTEROL LEVEL 135 MG/DL (<200); CHOLESTEROL RISK RATIO 3.87 (<5); CREATININE FOR GFR 0.86 MG/DL (0.55-1.30); GLOMERULAR FILTRATION RATE > 90.0 (>60); LDL CHOLESTEROL 70.4 MG/DL (<100); MAGNESIUM LEVEL 1.9 MG/DL (1.8-2.4); NON-HDL-C 100.2 MG/DL; POTASSIUM SERUM 4.5 MMOL/L (3.5-5.1); SODIUM LEVEL 139 MMOL/L (136-145); TRIGLYCERIDES LEVEL 149 MG/DL (<150)
[2025-08-29 12:51] LABS: FREE T4 1.32 NG/DL (0.89-1.76)
== END ==
LOC: M LAB 11:34
PROVIDERS: ATTEND Nurse Practitioner Family
DX: I10 Essential (primary) hypertension (principal)

== ENCOUNTER → 2025-09-20 | Outpatient (REF) | payer OTHER ==
[~2025-09-20] MED LIST changes: -LABE100T6 PO; +LABE100T91 PO; -LABE200T5 PO; +LABE200T86 PO
[2025-09-20 16:55] LABS: IRON (FE) 20.0 UG/DL (50-170); PERCENT SATURATION 5.3 % (13.2-45.0)
[2025-09-20 16:57] LABS: BASO # 0.0 10^3/uL (0.0-0.2); BASO % 0.3 % (0.0-1.0); EOS # 0.3 10^3/uL (0.0-0.5); EOS % 3.6 % (0.0-3.0); FREE T4 1.05 NG/DL (0.89-1.76); LYMPH # 2.3 10^3/uL (1.5-5.0); LYMPH % 25.1 % (24.0-44.0); MONO # 0.7 10^3/uL (0.0-0.8); MONO % 8.1 % (2.0-8.0); NEUTROPHILS # 5.7 10^3/uL (1.5-8.5); NEUTROPHILS % 62.7 % (36.0-66.0); PLATELET COUNT, AUTOMATED 320 10^3/uL (150-450); THYROID PEROXIDASE ANTIBODY 30.0 U/ML (<60.0)
== END ==
LOC: M LAB REF 16:22
PROVIDERS: ATTEND Student in an Organized Health Care Education/Training Program
DX: R79.89 Other specified abnormal findings of blood chemistry (principal); D50.9 Iron deficiency anemia, unspecified

== ENCOUNTER → 2025-10-06 | Outpatient (CLI) | payer OTHER | LOC: M WHC 13:48 | PROVIDERS: ATTEND Student in an Organized Health Care Education/Training Program | DX: R79.89 Other specified abnormal findings of blood chemistry (principal) ==